=== PATIENT | male | born 1970 | race Caucasian/White ===

== ENCOUNTER 2021-01-05 06:57 | Outpatient (CLI) | payer BC | END 2021-01-05 06:58 | disposition home or self-care (01) | LOC: BICULT 06:57 | PROVIDERS: ATTEND Nurse Practitioner Family | DX: M79.604 Pain in right leg (principal); I70.201 Unspecified atherosclerosis of native arteries of extremities, right leg | CPT/HCPCS: 93923 ==

== ENCOUNTER 2021-04-19 07:52 | Emergency (ER) | payer BC ==
[2021-04-19] MEDS ORDERED: Ketorolac Tromethamine 30 MG/ML VIAL ONE (08:10)
[2021-04-19] MEDS ORDERED: Acetaminophen 500 MG TAB ONE (08:10)
[2021-04-19] MEDS ORDERED: cefTRIAXone\\ROCEPHIN 1 GM VIAL ONE (08:10)
[2021-04-19 08:20] LABS: #Lymphocytes 1.4 thou/uL (1.20-3.40); #Monocytes 0.5 thou/uL (0.11-0.59); #Neutrophils 5.5 thou/uL (1.40-6.50); %Basophils 0.1 % (0.0-1.0); %Lymphocytes 18.3 % (21.0-51.0); %Monocytes 7.1 % (0.0-10.0); %Neutrophils 74.5 % (42.0-75.0); Hemoglobin 16.5 g/dL (14.0-18.0); Mean Corpuscular HGB CONC 33.2 g/dL (32.0-36.0); Mean Corpuscular Hemoglobin 30.3 pg (27.0-31.0); Mean Corpuscular Volume 91.5 fL (78.0-98.0); Mean Platelet Volume 9.1 fL (7.4-10.4); Platelet Count 171 thou/uL (130-400); RBC Distribution Width 12.5 % (11.5-14.5); Red Blood Cell (RBC) Count 5.43 mill/uL (4.70-6.10); White Blood Cell (WBC) Count 7.4 thou/uL (4.8-10.8)
[2021-04-19 08:42] LABS: ALT (SGPT) 54 U/L (8-55); AST (SGOT) 64 U/L (5-34); Albumin 3.8 g/dL (3.5-5.0); Alkaline Phosphatase 66 U/L (40-110); Anion Gap 15 mmol/L (10-20); BUN (Urea Nitrogen) 17 mg/dL (8.4-25.7); Bilirubin, Total 0.5 mg/dL (0.2-1.2); Calc. Creatinine Clearance 0 mL/min (70-130); Calcium 8.9 mg/dL (7.8-10.44); Carbon Dioxide 24 mmol/L (22-29); Chloride 98 mmol/L (98-107); Globulin 4.1 g/dL (2.4-3.5); Glucose 129 mg/dL (70-105); Potassium 4.5 mmol/L (3.5-5.1); Protein, Total 7.9 g/dL (6.0-8.3); Sodium 132 mmol/L (136-145)
[2021-04-19] MEDS ORDERED: Albuterol 200 PUFF (6.7GM INHALER) ONE (08:50)
[2021-04-19 14:32] LABS: SARS-CoV-2 PCR by NAA DETECTED (NotDetected)
== END 2021-04-19 09:55 | disposition home or self-care (01) ==
LOC: ERS 07:52
DX: U07.1 COVID-19 (principal); F17.220 Nicotine dependence, chewing tobacco, uncomplicated
CPT/HCPCS: 71045; 80053; 83605; 84443; 84484; 85025; 87040; 93005; 96374; 96375; J0696; J1885; U0003; U0005

== ENCOUNTER 2021-04-22 08:52 | Inpatient (IN) | payer BC ==
[~2021-04-22 08:52] MED LIST: Dexamethasone 10 MG/ML VIAL SLOW IVP SCH
[2021-04-22 09:20] LABS: Actual Bicarbonate (HCO3a) 20.1 mEq/L (22-28); Analyzer IN Cardio ER; Base Excess (BEa) -2.7 mEq/L (-2.0 to +3.0); CO2 Tension 30.1 mmHg (35.0-45.0); Calcium, Ionized (arterial) 1.02 mmol/L (1.12-1.30); Carboxyhemoglobin (COHb) 0.8 gm% (0.0-3.0); Hemoglobin (Hb) 15.4 g/dL (14.0-18.0); Potassium - ABG Lab 3.12 mmol/L (3.70-5.30); pH, Arterial 7.44 (7.35-7.45)
[2021-04-22 09:22] LABS: O2 Tension (PaO2), arterial 38.9 mmHg (80.0-100.0)
[2021-04-22 09:23] LABS: ALV-art Gradient 565.175 mmHg (0-20); Puncture Site RRA
[2021-04-22] MEDS ORDERED: Albuterol 200 PUFF (6.7GM INHALER) ONE (09:24)
[2021-04-22] MEDS ORDERED: Azithromycin 500 MG VIAL ONE (09:24)
[2021-04-22] MEDS ORDERED: Dexamethasone 10 MG/ML VIAL ONE (09:24)
[2021-04-22] MEDS ORDERED: cefTRIAXone\\ROCEPHIN 2 GM VIAL ONE (09:24)
[2021-04-22 09:30] LABS: Mean Corpuscular HGB CONC 34.5 g/dL (32.0-36.0); Mean Corpuscular Hemoglobin 31.4 pg (27.0-31.0); Mean Corpuscular Volume 90.9 fL (78.0-98.0); Mean Platelet Volume 9.3 fL (7.4-10.4); Platelet Count 268 thou/uL (130-400); RBC Distribution Width 12.7 % (11.5-14.5); Red Blood Cell (RBC) Count 4.78 mill/uL (4.70-6.10); White Blood Cell (WBC) Count 13.3 thou/uL (4.8-10.8)
[2021-04-22] MEDS ORDERED: Ketamine 50 MG/ML (10ML VIAL) ONE (09:35)
[2021-04-22] MEDS ORDERED: Rocuronium Bromide 10 MG/ML (10ML VIAL) ONE ×2 (09:35→11:08)
[2021-04-22] MEDS ORDERED: Norepinephrine 8 MG/0.9% NS 250 ML ONE ×2 (09:37→09:39)
[2021-04-22 09:41] LABS: Band 6 % (5-11); Lymphocytes 11 % (21-51); MDiff Complete? YES; Monocytes 4 % (0-10); Neutrophil 77 % (42-75); Platelet Morphology Comment Appears Adequate; RBC Morphology Normal; Reactive Lymphocytes 2 % (0-10)
[2021-04-22 09:52] LABS: ALT (SGPT) 41 U/L (8-55); AST (SGOT) 74 U/L (5-34); Albumin 3.3 g/dL (3.5-5.0); Alkaline Phosphatase 57 U/L (40-110); Anion Gap 20 mmol/L (10-20); BUN (Urea Nitrogen) 26 mg/dL (8.4-25.7); Bilirubin, Total 1.1 mg/dL (0.2-1.2); Calc. Creatinine Clearance 0 mL/min (70-130); Calcium 7.5 mg/dL (7.8-10.44); Carbon Dioxide 19 mmol/L (22-29); Chloride 103 mmol/L (98-107); Globulin 2.6 g/dL (2.4-3.5); Glucose 144 mg/dL (70-105); Potassium 3.8 mmol/L (3.5-5.1); Protein, Total 5.9 g/dL (6.0-8.3); Sodium 138 mmol/L (136-145)
[2021-04-22] MEDS ORDERED: Fentanyl CADD 100 ML IV SCH (10:00)
[2021-04-22 10:17] LABS: CKMB 1.9 ng/mL (0-6.6)
[2021-04-22] MEDS ORDERED: Heparin 10,000 UNITS/ 10 ML VIAL ONE (10:46)
[2021-04-22] MEDS ORDERED: Heparin 25,000 units/D5W 500 ML ONE (10:46)
[2021-04-22] MEDS ORDERED: Cholecalciferol 1,000 UNITS (25 MCG) TAB PO SCH (11:00)
[2021-04-22] MEDS ORDERED: Thiamine 100 MG TAB PO SCH (11:00)
[2021-04-22] MEDS ORDERED: Enoxaparin Sodium 40 MG/0.4 ML SYRINGE SC SCH (11:30)
[2021-04-22] MEDS ORDERED: Vecuronium 10 MG VIAL ONE (11:58)
[2021-04-22] MEDS ORDERED: Lorazepam 2 MG/ML VIAL ONE (11:58)
[2021-04-22] MEDS ORDERED: Propofol 1,000 MG/100 ML VIAL IV ONE (11:58)
[2021-04-22 12:22] LABS: INR-International Normal Ratio 1.2
[2021-04-22 12:23] LABS: PTT 33.6 sec (22.9-36.1)
[2021-04-22] MEDS ORDERED: Dexamethasone 10 MG/ML VIAL SLOW IVP SCH (12:30)
[2021-04-22] MEDS ORDERED: Ascorbic Acid 500 mg Chewable Tablet PO SCH (12:30)
[2021-04-22 12:57] LABS: Lactic Acid 1.9 mmol/L (0.5-2.2)
[2021-04-22] MEDS ORDERED: Zinc Sulfate 220 MG CAP PO SCH (13:00)
[2021-04-22 13:01] LABS: Actual Bicarbonate (HCO3a) 19.5 mEq/L (22-28); Base Excess (BEa) -8.3 mEq/L (-2.0 to +3.0); CO2 Tension 48.4 mmHg (35.0-45.0); Calcium, Ionized (arterial) 1.08 mmol/L (1.12-1.30); Carboxyhemoglobin (COHb) 0.5 gm% (0.0-3.0); Hemoglobin (Hb) 15.1 g/dL (14.0-18.0); O2 Tension (PaO2), arterial 172.4 mmHg (80.0-100.0); Potassium - ABG Lab 3.36 mmol/L (3.70-5.30)
[2021-04-22 13:03] LABS: Puncture Site LRA; pH, Arterial 7.22 (7.35-7.45)
[2021-04-22 13:13] LABS: Troponin I 0.351 ng/mL (< 0.028)
[2021-04-22] MEDS ORDERED: Morphine 2 MG/ML VIAL SLOW IVP PRN (13:30)
[2021-04-22] MEDS ORDERED: Propofol BOLUS 1,000 MG/100 ML VIAL IV PRN (13:30)
[2021-04-22] MEDS ORDERED: DISCONTINUE PREVIOUS NARCOTIC PAIN MEDICATIONS AND BENZODIAZEPINES FS SCH (13:30)
[2021-04-22] MEDS ORDERED: Fentanyl BOLUS 250 ML IVPB PRN (13:30)
[2021-04-22] MEDS ORDERED: Lorazepam 2 MG/ML VIAL SLOW IVP SCH (13:35)
[2021-04-22] MEDS ORDERED: Vecuronium 10 MG VIAL IVP SCH (13:35)
[2021-04-22] MEDS ORDERED: Lactated Ringer's 1,000 ML IV SCH (14:30)
[2021-04-22] MEDS: Lorazepam 2 MG/ML VIAL SLOW IVP PRN ×3 (14:46→22:51)
[2021-04-22] MEDS: Vecuronium 10 MG VIAL IVP PRN ×3 (14:47→22:51)
[2021-04-22] MEDS ORDERED: REMDESIVIR 200 MG in Sodium Chloride 0.9% 250 ML 210 ML IV SCH (15:00)
[2021-04-22] MEDS: Propofol 1,000 MG/100 ML VIAL IV PRN (18:44)
[2021-04-22 20:32] LABS: Troponin I 0.157 ng/mL (< 0.028)
[2021-04-22] MEDS: Enoxaparin Sodium 40 MG/0.4 ML SYRINGE SC SCH (20:41)
[2021-04-22] MEDS: Famotidine/PF 20 mg/2ml Vial SLOW IVP SCH (20:41)
[2021-04-22] MEDS: Dexamethasone 10 MG/ML VIAL SLOW IVP SCH (20:42)
[2021-04-22] MEDS ORDERED: Fentanyl CADD 100 ML ONE (22:10)
[2021-04-22] MEDS: Fentanyl CADD 100 ML IV SCH (22:13)
[2021-04-23] MEDS: Vecuronium 10 MG VIAL IVP PRN ×5 (02:45→22:56)
[2021-04-23] MEDS: Lorazepam 2 MG/ML VIAL SLOW IVP PRN ×5 (02:45→22:53)
[2021-04-23 04:19] LABS: #Lymphocytes 1.2 thou/uL (1.20-3.40); #Monocytes 0.7 thou/uL (0.11-0.59); #Neutrophils 11.5 thou/uL (1.40-6.50); %Basophils 0.2 % (0.0-1.0); %Eosinophils 0.1 % (0.0-10.0); %Lymphocytes 8.9 % (21.0-51.0); %Monocytes 5.3 % (0.0-10.0); %Neutrophils 85.5 % (42.0-75.0); Hemoglobin 13.9 g/dL (14.0-18.0); Mean Corpuscular HGB CONC 33.5 g/dL (32.0-36.0); Mean Corpuscular Hemoglobin 31.8 pg (27.0-31.0); Mean Corpuscular Volume 94.7 fL (78.0-98.0); Mean Platelet Volume 9.7 fL (7.4-10.4); Platelet Count 277 thou/uL (130-400); RBC Distribution Width 12.9 % (11.5-14.5); Red Blood Cell (RBC) Count 4.38 mill/uL (4.70-6.10); White Blood Cell (WBC) Count 13.4 thou/uL (4.8-10.8)
[2021-04-23 04:28] LABS: Anion Gap 9 mmol/L (10-20); BUN (Urea Nitrogen) 24 mg/dL (8.4-25.7); Calc. Creatinine Clearance 156 mL/min (70-130); Carbon Dioxide 29 mmol/L (22-29); Chloride 106 mmol/L (98-107); Glucose 214 mg/dL (70-105); Potassium 4.2 mmol/L (3.5-5.1); Sodium 140 mmol/L (136-145)
[2021-04-23 06:49] LABS: Actual Bicarbonate (HCO3a) 26.5 mEq/L (22-28); Base Excess (BEa) -1.7 mEq/L (-2.0 to +3.0); CO2 Tension 59.7 mmHg (35.0-45.0); Calcium, Ionized (arterial) 1.15 mmol/L (1.12-1.30); Hemoglobin (Hb) 14.5 g/dL (14.0-18.0); O2 Tension (PaO2), arterial 108.4 mmHg (80.0-100.0); Potassium - ABG Lab 4.36 mmol/L (3.70-5.30); pH, Arterial 7.27 (7.35-7.45)
[2021-04-23 07:16] LABS: Puncture Site RRA
[2021-04-23 07:17] LABS: ALV-art Gradient 244.775 mmHg (0-20)
[2021-04-23] MEDS ORDERED: Dexamethasone 10 MG in Sodium Chloride 0.9% 50 ML IVPB SCH (09:00)
[2021-04-23] MEDS: Enoxaparin Sodium 40 MG/0.4 ML SYRINGE SC SCH ×2 (10:00→20:32)
[2021-04-23] MEDS: Thiamine 100 MG TAB PO SCH (10:01)
[2021-04-23] MEDS: Cholecalciferol 1,000 UNITS (25 MCG) TAB PO SCH (10:01)
[2021-04-23] MEDS: Famotidine/PF 20 mg/2ml Vial SLOW IVP SCH ×2 (10:01→20:33)
[2021-04-23] MEDS: Ascorbic Acid 500 mg Chewable Tablet PO SCH (10:01)
[2021-04-23] MEDS: Zinc Sulfate 220 MG CAP PO SCH (10:02)
[2021-04-23] MEDS: cefTRIAXone\\ROCEPHIN 2 GM in Sodium Chloride 0.9% 100 ML IVPB SCH (10:03)
[2021-04-23] MEDS: Propofol 1,000 MG/100 ML VIAL IV PRN ×2 (10:04→18:14)
[2021-04-23] MEDS: Dexamethasone 10 MG/ML VIAL SLOW IVP SCH ×2 (10:29→20:34)
[2021-04-23] MEDS: Azithromycin 500 MG in Sodium Chloride 0.9% 250 ML 250 ML IVPB SCH (10:30)
[2021-04-23] MEDS ORDERED: Fentanyl CADD 100 ML ONE ×2 (10:58→18:44)
[2021-04-23] MEDS ORDERED: REMDESIVIR 100 MG in Sodium Chloride 0.9% 250 ML 230 ML IV SCH (15:00)
[2021-04-23] MEDS: Fentanyl CADD 100 ML IV SCH (18:47)
[2021-04-24 04:18] LABS: Hemoglobin 13.2 g/dL (14.0-18.0); Mean Corpuscular HGB CONC 32.3 g/dL (32.0-36.0); Mean Corpuscular Hemoglobin 30.7 pg (27.0-31.0); Mean Corpuscular Volume 95.3 fL (78.0-98.0); Mean Platelet Volume 9.6 fL (7.4-10.4); Platelet Count 295 thou/uL (130-400); RBC Distribution Width 13.2 % (11.5-14.5); Red Blood Cell (RBC) Count 4.29 mill/uL (4.70-6.10); White Blood Cell (WBC) Count 16.8 thou/uL (4.8-10.8)
[2021-04-24 05:11] LABS: Magnesium 3.5 mg/dL (1.6-2.6)
[2021-04-24 05:13] LABS: ALT (SGPT) 38 U/L (8-55); AST (SGOT) 40 U/L (5-34); Albumin 2.9 g/dL (3.5-5.0); Alkaline Phosphatase 46 U/L (40-110); Anion Gap 10 mmol/L (10-20); BUN (Urea Nitrogen) 32 mg/dL (8.4-25.7); Bilirubin, Total 0.3 mg/dL (0.2-1.2); Calc. Creatinine Clearance 141 mL/min (70-130); Calcium 8.1 mg/dL (7.8-10.44); Carbon Dioxide 31 mmol/L (22-29); Chloride 108 mmol/L (98-107); Globulin 3.3 g/dL (2.4-3.5); Glucose 207 mg/dL (70-105); Potassium 4.2 mmol/L (3.5-5.1); Protein, Total 6.2 g/dL (6.0-8.3); Sodium 145 mmol/L (136-145)
[2021-04-24 05:50] LABS: Band 13 % (5-11); Lymphocytes 3 % (21-51); MDiff Complete? YES; Monocytes 3 % (0-10); Neutrophil 81 % (42-75)
[2021-04-24] MEDS: Lorazepam 2 MG/ML VIAL SLOW IVP PRN ×2 (06:43→08:19)
[2021-04-24] MEDS: Vecuronium 10 MG VIAL IVP PRN ×2 (06:43→08:19)
[2021-04-24] MEDS ORDERED: Fentanyl CADD 100 ML ONE (08:17)
[2021-04-24] MEDS: Enoxaparin Sodium 40 MG/0.4 ML SYRINGE SC SCH ×2 (08:19→21:10)
[2021-04-24] MEDS: Famotidine/PF 20 mg/2ml Vial SLOW IVP SCH ×2 (08:19→21:11)
[2021-04-24] MEDS: Fentanyl CADD 100 ML IV SCH (08:19)
[2021-04-24] MEDS: cefTRIAXone\\ROCEPHIN 2 GM in Sodium Chloride 0.9% 100 ML IVPB SCH (08:19)
[2021-04-24] MEDS: Ascorbic Acid 500 mg Chewable Tablet PO SCH (08:20)
[2021-04-24] MEDS: Cholecalciferol 1,000 UNITS (25 MCG) TAB PO SCH (08:20)
[2021-04-24] MEDS: Thiamine 100 MG TAB PO SCH (08:20)
[2021-04-24] MEDS: Zinc Sulfate 220 MG CAP PO SCH (08:20)
[2021-04-24] MEDS: Dexamethasone 10 MG/ML VIAL SLOW IVP SCH ×2 (08:21→21:43)
[2021-04-24 08:35] LABS: ALV-art Gradient 148.425 mmHg (0-20); Actual Bicarbonate (HCO3a) 27.8 mEq/L (22-28); Base Excess (BEa) 2.6 mEq/L (-2.0 to +3.0); CO2 Tension 45.1 mmHg (35.0-45.0); Calcium, Ionized (arterial) 1.11 mmol/L (1.12-1.30); Carboxyhemoglobin (COHb) 0.3 gm% (0.0-3.0); Hemoglobin (Hb) 13.9 g/dL (14.0-18.0); O2 Tension (PaO2), arterial 80.4 mmHg (80.0-100.0); Potassium - ABG Lab 4.16 mmol/L (3.70-5.30); Puncture Site LRA; pH, Arterial 7.41 (7.35-7.45)
[2021-04-24] MEDS ORDERED: fentaNYL Citrate/PF 2,000 MCG in Sodium Chloride 0.9% 60 ML IV PRN (09:14)
[2021-04-24] MEDS: Propofol 1,000 MG/100 ML VIAL IV PRN (09:18)
[2021-04-24 10:39] LABS: Phosphorus 2.6 mg/dL (2.3-4.7)
[2021-04-24] MEDS: Azithromycin 500 MG in Sodium Chloride 0.9% 250 ML 250 ML IVPB SCH (17:22)
[2021-04-24] MEDS ORDERED: BARICITINIB 1 MG TAB PO SCH (22:00)
[2021-04-25] MEDS: Propofol 1,000 MG/100 ML VIAL IV PRN ×3 (03:19→17:55)
[2021-04-25 04:45] LABS: Hemoglobin 12.7 g/dL (14.0-18.0); Mean Corpuscular Volume 94.1 fL (78.0-98.0); Mean Platelet Volume 9.6 fL (7.4-10.4); Platelet Count 368 thou/uL (130-400); Red Blood Cell (RBC) Count 3.97 mill/uL (4.70-6.10); White Blood Cell (WBC) Count 13.4 thou/uL (4.8-10.8)
[2021-04-25 04:54] LABS: CRP (Inflammatory) 4.85 mg/dL (= or < 0.5); Magnesium 3.5 mg/dL (1.6-2.6)
[2021-04-25 04:55] LABS: Phosphorus 2.5 mg/dL (2.3-4.7)
[2021-04-25] MEDS ORDERED: Fentanyl CADD 100 ML ONE ×2 (04:57→18:24)
[2021-04-25] MEDS: Fentanyl CADD 100 ML IV PRN ×2 (05:02→18:30)
[2021-04-25 05:22] LABS: Band 15 % (5-11); Lymphocytes 5 % (21-51); MDiff Complete? YES; Metamyelocyte 1 % (0-0); Monocytes 1 % (0-10); Neutrophil 74 % (42-75); Platelet Morphology Comment Appears Adequate; Polychromasia SLIGHT = 2-3 cells (100X) (0-2/hpf); Reactive Lymphocytes 4 % (0-10)
[2021-04-25 05:36] LABS: ALT (SGPT) 46 U/L (8-55); AST (SGOT) 56 U/L (5-34); Albumin 2.9 g/dL (3.5-5.0); Alkaline Phosphatase 51 U/L (40-110); Anion Gap 11 mmol/L (10-20); BUN (Urea Nitrogen) 40 mg/dL (8.4-25.7); Bilirubin, Total 0.6 mg/dL (0.2-1.2); Calc. Creatinine Clearance 135 mL/min (70-130); Calcium 8.1 mg/dL (7.8-10.44); Carbon Dioxide 29 mmol/L (22-29); Chloride 111 mmol/L (98-107); Globulin 3.1 g/dL (2.4-3.5); Glucose 174 mg/dL (70-105); Sodium 147 mmol/L (136-145)
[2021-04-25 08:07] LABS: Actual Bicarbonate (HCO3a) 28.5 mEq/L (22-28); CO2 Tension 42.8 mmHg (35.0-45.0); Calcium, Ionized (arterial) 1.09 mmol/L (1.12-1.30); Potassium - ABG Lab 3.99 mmol/L (3.70-5.30); pH, Arterial 7.44 (7.35-7.45)
[2021-04-25] MEDS: cefTRIAXone\\ROCEPHIN 2 GM in Sodium Chloride 0.9% 100 ML IVPB SCH (09:24)
[2021-04-25] MEDS: Famotidine/PF 20 mg/2ml Vial SLOW IVP SCH ×2 (09:26→20:26)
[2021-04-25] MEDS: Thiamine 100 MG TAB PO SCH (09:26)
[2021-04-25] MEDS: Zinc Sulfate 220 MG CAP PO SCH (09:26)
[2021-04-25] MEDS: Enoxaparin Sodium 40 MG/0.4 ML SYRINGE SC SCH ×2 (09:26→20:26)
[2021-04-25] MEDS: Cholecalciferol 1,000 UNITS (25 MCG) TAB PO SCH (09:26)
[2021-04-25] MEDS: Ascorbic Acid 500 mg Chewable Tablet PO SCH (09:26)
[2021-04-25] MEDS ORDERED: Piperacillin/Tazobactam 3.375 GM in Sodium Chloride 0.9% 100 ML IVPB SCH (10:17)
[2021-04-25] MEDS: Dexamethasone 10 MG/ML VIAL SLOW IVP SCH ×3 (10:18→20:54)
[2021-04-25 10:51] LABS: O2 Tension (PaO2), arterial 58.7 mmHg (80.0-100.0); Puncture Site LRA
[2021-04-25] MEDS: Vancomycin 1 GM in Premix Bag 1 BAG IVPB SCH (13:11)
[2021-04-25] MEDS: Cefepime 1 GM in Sodium Chloride 0.9% 100 ML IVPB SCH ×2 (13:12→21:01)
[2021-04-25] MEDS ORDERED: Dextrose 5% in Water 1,000 ML IV SCH (16:00)
[2021-04-25] MEDS ORDERED: Insulin Regular 300 UNITS/3 ML VIAL SC SCH (18:00)
[2021-04-25] MEDS ORDERED: Insulin Regular 300 UNITS/3 ML VIAL SC PRN (18:15)
[2021-04-25] MEDS ORDERED: Lactated Ringer's 1,000 ML IV SCH (18:15)
[2021-04-25] MEDS ORDERED: Dextrose 5% in Water 1,000 ML IV PRN (18:30)
[2021-04-25] MEDS ORDERED: Dextrose 50% Abboject 50 ML SYRINGE IVP PRN (18:30)
[2021-04-25] MEDS: Insulin Regular 300 UNITS/3 ML VIAL SC SCH (20:04)
[2021-04-25] MEDS: BARICITINIB 1 MG TAB PO SCH (20:55)
[2021-04-26] MEDS: Vancomycin 1 GM in Premix Bag 1 BAG IVPB SCH ×2 (00:17→12:31)
[2021-04-26] MEDS: Insulin Regular 300 UNITS/3 ML VIAL SC SCH ×3 (00:28→12:15)
[2021-04-26] MEDS: Propofol 1,000 MG/100 ML VIAL IV PRN ×5 (02:10→19:54)
[2021-04-26 04:51] LABS: CRP (Inflammatory) 2.61 mg/dL (= or < 0.5); Magnesium 3.4 mg/dL (1.6-2.6); Phosphorus 3.5 mg/dL (2.3-4.7)
[2021-04-26] MEDS: Cefepime 1 GM in Sodium Chloride 0.9% 100 ML IVPB SCH ×3 (05:14→21:33)
[2021-04-26 06:31] LABS: Band 20 % (5-11); Hemoglobin 12.4 g/dL (14.0-18.0); Large Platelets SLIGHT; Lymphocytes 3 % (21-51); MDiff Complete? YES; Mean Corpuscular HGB CONC 32.1 g/dL (32.0-36.0); Mean Corpuscular Hemoglobin 30.7 pg (27.0-31.0); Mean Corpuscular Volume 95.6 fL (78.0-98.0); Mean Platelet Volume 9.6 fL (7.4-10.4); Monocytes 4 % (0-10); Myelocyte 2 % (0-0); Neutrophil 66 % (42-75); Platelet Count 417 thou/uL (130-400); RBC Distribution Width 13.1 % (11.5-14.5); Reactive Lymphocytes 5 % (0-10); Red Blood Cell (RBC) Count 4.05 mill/uL (4.70-6.10); White Blood Cell (WBC) Count 16.1 thou/uL (4.8-10.8)
[2021-04-26] MEDS: Lorazepam 2 MG/ML VIAL SLOW IVP PRN (07:23)
[2021-04-26] MEDS ORDERED: Fentanyl CADD 100 ML ONE ×2 (07:51→19:31)
[2021-04-26] MEDS: Zinc Sulfate 220 MG CAP PO SCH (07:59)
[2021-04-26] MEDS: Enoxaparin Sodium 40 MG/0.4 ML SYRINGE SC SCH ×2 (07:59→19:53)
[2021-04-26] MEDS: Ascorbic Acid 500 mg Chewable Tablet PO SCH (07:59)
[2021-04-26] MEDS: Thiamine 100 MG TAB PO SCH (07:59)
[2021-04-26] MEDS: Famotidine/PF 20 mg/2ml Vial SLOW IVP SCH ×2 (08:00→19:53)
[2021-04-26 08:48] LABS: Base Excess (BEa) 5.7 mEq/L (-2.0 to +3.0); CO2 Tension 42.2 mmHg (35.0-45.0); Calcium, Ionized (arterial) 1.04 mmol/L (1.12-1.30); Carboxyhemoglobin (COHb) 0.4 gm% (0.0-3.0); Hemoglobin (Hb) 12.8 g/dL (14.0-18.0); O2 Tension (PaO2), arterial 82.9 mmHg (80.0-100.0); Potassium - ABG Lab 3.76 mmol/L (3.70-5.30); pH, Arterial 7.47 (7.35-7.45)
[2021-04-26 09:02] LABS: Puncture Site LRA
[2021-04-26] MEDS: Cholecalciferol 1,000 UNITS (25 MCG) TAB PO SCH (09:12)
[2021-04-26] MEDS: Dexamethasone 10 MG/ML VIAL SLOW IVP SCH ×2 (09:32→21:27)
[2021-04-26 10:11] LABS: Actual Bicarbonate (HCO3a) 28.8 mEq/L (22-28); Base Excess (BEa) 3.7 mEq/L (-2.0 to +3.0); CO2 Tension 45.8 mmHg (35.0-45.0); Calcium, Ionized (arterial) 1.09 mmol/L (1.12-1.30); Carboxyhemoglobin (COHb) 0.2 gm% (0.0-3.0); Hemoglobin (Hb) 12.8 g/dL (14.0-18.0); Potassium - ABG Lab 3.84 mmol/L (3.70-5.30); pH, Arterial 7.42 (7.35-7.45)
[2021-04-26 10:23] LABS: Anion Gap 12 mmol/L (10-20); BUN (Urea Nitrogen) 39 mg/dL (8.4-25.7); Calc. Creatinine Clearance 168 mL/min (70-130); Calcium 7.8 mg/dL (7.8-10.44); Carbon Dioxide 26 mmol/L (22-29); Chloride 114 mmol/L (98-107); Glucose 164 mg/dL (70-105); Sodium 148 mmol/L (136-145)
[2021-04-26 10:33] LABS: O2 Tension (PaO2), arterial 56.4 mmHg (80.0-100.0); Puncture Site LRA
[2021-04-26] MEDS: BARICITINIB 1 MG TAB PO SCH (19:53)
[2021-04-26] MEDS: Fentanyl CADD 100 ML IV PRN (19:54)
[2021-04-26] MEDS: Dextrose 5% in Water 1,000 ML IV SCH (21:27)
[2021-04-27] MEDS: Insulin Regular 300 UNITS/3 ML VIAL SC SCH ×5 (00:30→19:28)
[2021-04-27] MEDS: Vancomycin 1 GM in Premix Bag 1 BAG IVPB SCH (00:40)
[2021-04-27 01:06] LABS: Vancomycin, Trough 6.3 ug/mL
[2021-04-27] MEDS ORDERED: Lorazepam 2 MG/ML VIAL ONE (01:10)
[2021-04-27] MEDS: Propofol 1,000 MG/100 ML VIAL IV PRN ×4 (01:11→23:17)
[2021-04-27] MEDS ORDERED: Vancomycin 1 GM in Premix Bag 1 BAG IVPB SCH (02:30)
[2021-04-27] MEDS ORDERED: Fentanyl CADD 100 ML ONE ×2 (05:09→15:02)
[2021-04-27 05:44] LABS: ALT (SGPT) 248 U/L (8-55); AST (SGOT) 128 U/L (5-34); Albumin 2.7 g/dL (3.5-5.0); Alkaline Phosphatase 70 U/L (40-110); Anion Gap 11 mmol/L (10-20); BUN (Urea Nitrogen) 33 mg/dL (8.4-25.7); Bilirubin, Total 1.1 mg/dL (0.2-1.2); Calc. Creatinine Clearance 172 mL/min (70-130); Calcium 7.7 mg/dL (7.8-10.44); Carbon Dioxide 31 mmol/L (22-29); Chloride 110 mmol/L (98-107); Globulin 2.9 g/dL (2.4-3.5); Glucose 234 mg/dL (70-105); Magnesium 2.8 mg/dL (1.6-2.6); Phosphorus 3.9 mg/dL (2.3-4.7); Potassium 4.6 mmol/L (3.5-5.1); Protein, Total 5.6 g/dL (6.0-8.3); Sodium 147 mmol/L (136-145)
[2021-04-27] MEDS: Fentanyl CADD 100 ML IV PRN (05:45)
[2021-04-27] MEDS: Cefepime 1 GM in Sodium Chloride 0.9% 100 ML IVPB SCH ×3 (05:45→22:24)
[2021-04-27 06:00] LABS: Hemoglobin 12.2 g/dL (14.0-18.0); Mean Corpuscular HGB CONC 34.1 g/dL (32.0-36.0); Mean Corpuscular Hemoglobin 32.3 pg (27.0-31.0); Mean Corpuscular Volume 94.7 fL (78.0-98.0); Mean Platelet Volume 9.2 fL (7.4-10.4); Platelet Count 414 thou/uL (130-400); RBC Distribution Width 12.8 % (11.5-14.5); Red Blood Cell (RBC) Count 3.79 mill/uL (4.70-6.10); White Blood Cell (WBC) Count 17.6 thou/uL (4.8-10.8)
[2021-04-27 06:02] LABS: Band 14 % (5-11); Lymphocytes 4 % (21-51); MDiff Complete? YES; Metamyelocyte 3 % (0-0); Monocytes 5 % (0-10); Myelocyte 4 % (0-0); Neutrophil 70 % (42-75)
[2021-04-27] MEDS: Dexamethasone 4 mg/ml Vial SLOW IVP SCH (08:42)
[2021-04-27] MEDS: Famotidine/PF 20 mg/2ml Vial SLOW IVP SCH (08:43)
[2021-04-27] MEDS: Ascorbic Acid 500 mg Chewable Tablet PO SCH (08:43)
[2021-04-27] MEDS: Zinc Sulfate 220 MG CAP PO SCH (08:43)
[2021-04-27] MEDS: Cholecalciferol 1,000 UNITS (25 MCG) TAB PO SCH (08:43)
[2021-04-27] MEDS: Enoxaparin Sodium 40 MG/0.4 ML SYRINGE SC SCH ×2 (08:43→20:18)
[2021-04-27] MEDS: Thiamine 100 MG TAB PO SCH (08:43)
[2021-04-27] MEDS: Lorazepam 2 MG/ML VIAL SLOW IVP PRN ×5 (08:44→22:52)
[2021-04-27] MEDS ORDERED: Furosemide 40 MG/4 ML VIAL SLOW IVP SCH (09:45)
[2021-04-27] MEDS ORDERED: Vecuronium 10 MG VIAL ONE ×2 (10:21→13:09)
[2021-04-27] MEDS ORDERED: Vecuronium Bromide 50 MG in Sodium Chloride 0.9% 250 ML 250 ML IV SCH (10:30)
[2021-04-27 13:05] LABS: Actual Bicarbonate (HCO3a) 31.1 mEq/L (22-28); Base Excess (BEa) 6.2 mEq/L (-2.0 to +3.0); CO2 Tension 45.4 mmHg (35.0-45.0); Calcium, Ionized (arterial) 1.08 mmol/L (1.12-1.30); Carboxyhemoglobin (COHb) 0.5 gm% (0.0-3.0); Hemoglobin (Hb) 13.7 g/dL (14.0-18.0); pH, Arterial 7.45 (7.35-7.45)
[2021-04-27 14:14] LABS: O2 Tension (PaO2), arterial 59.4 mmHg (80.0-100.0)
[2021-04-27 14:15] LABS: Puncture Site LRA
[2021-04-27] MEDS: VANCOMYCIN 1.75 GM/350 ML BAG 1.75 GM in Premix Bag 1 BAG IVPB SCH (17:04)
[2021-04-27] MEDS: Dextrose 5% in Water 1,000 ML IV SCH (19:27)
[2021-04-27] MEDS ORDERED: Sterile Water 10 ML ONE ×2 (20:14→22:49)
[2021-04-27] MEDS: Vecuronium 10 MG VIAL IV PRN ×2 (20:17→22:51)
[2021-04-27] MEDS: BARICITINIB 1 MG TAB PO SCH (20:17)
[2021-04-27] MEDS: Famotidine 20 MG TAB PO SCH (20:18)
[2021-04-28] MEDS: Insulin Regular 300 UNITS/3 ML VIAL SC SCH ×4 (00:29→18:26)
[2021-04-28] MEDS ORDERED: Fentanyl CADD 100 ML ONE ×3 (01:01→19:31)
[2021-04-28] MEDS ORDERED: Sterile Water 10 ML ONE ×2 (01:05→03:47)
[2021-04-28] MEDS: Lorazepam 2 MG/ML VIAL SLOW IVP PRN ×3 (01:06→09:18)
[2021-04-28] MEDS: Vecuronium 10 MG VIAL IV PRN ×2 (01:06→03:48)
[2021-04-28] MEDS: Fentanyl CADD 100 ML IV PRN ×3 (01:06→21:07)
[2021-04-28] MEDS: VANCOMYCIN 1.75 GM/350 ML BAG 1.75 GM in Premix Bag 1 BAG IVPB SCH ×2 (02:41→14:28)
[2021-04-28] MEDS: Propofol 1,000 MG/100 ML VIAL IV PRN ×5 (03:48→21:03)
[2021-04-28 04:25] LABS: Hemoglobin 12.3 g/dL (14.0-18.0); Mean Corpuscular HGB CONC 32.9 g/dL (32.0-36.0); Mean Corpuscular Hemoglobin 31.3 pg (27.0-31.0); Mean Corpuscular Volume 94.9 fL (78.0-98.0); Mean Platelet Volume 9.3 fL (7.4-10.4); Platelet Count 400 thou/uL (130-400); RBC Distribution Width 12.6 % (11.5-14.5); Red Blood Cell (RBC) Count 3.94 mill/uL (4.70-6.10); White Blood Cell (WBC) Count 16.6 thou/uL (4.8-10.8)
[2021-04-28 04:41] LABS: ALT (SGPT) 272 U/L (8-55); AST (SGOT) 105 U/L (5-34); Albumin 2.7 g/dL (3.5-5.0); Alkaline Phosphatase 72 U/L (40-110); Anion Gap 10 mmol/L (10-20); BUN (Urea Nitrogen) 30 mg/dL (8.4-25.7); Bilirubin, Total 0.9 mg/dL (0.2-1.2); Calc. Creatinine Clearance 186 mL/min (70-130); Calcium 7.4 mg/dL (7.8-10.44); Carbon Dioxide 34 mmol/L (22-29); Chloride 107 mmol/L (98-107); Globulin 2.8 g/dL (2.4-3.5); Glucose 138 mg/dL (70-105); Magnesium 2.5 mg/dL (1.6-2.6); Phosphorus 4.2 mg/dL (2.3-4.7); Potassium 4.6 mmol/L (3.5-5.1); Protein, Total 5.5 g/dL (6.0-8.3); Sodium 146 mmol/L (136-145)
[2021-04-28 05:10] LABS: Band 14 % (5-11); Lymphocytes 14 % (21-51); MDiff Complete? YES; Monocytes 5 % (0-10); Myelocyte 5 % (0-0); Neutrophil 62 % (42-75)
[2021-04-28] MEDS: Cefepime 1 GM in Sodium Chloride 0.9% 100 ML IVPB SCH ×3 (05:29→21:03)
[2021-04-28 06:49] LABS: Actual Bicarbonate (HCO3a) 29.3 mEq/L (22-28); Base Excess (BEa) 4.7 mEq/L (-2.0 to +3.0); CO2 Tension 43.3 mmHg (35.0-45.0); Calcium, Ionized (arterial) 1.07 mmol/L (1.12-1.30); Carboxyhemoglobin (COHb) 0.5 gm% (0.0-3.0); Potassium - ABG Lab 4.06 mmol/L (3.70-5.30); pH, Arterial 7.45 (7.35-7.45)
[2021-04-28 06:52] LABS: O2 Tension (PaO2), arterial 49.4 mmHg (80.0-100.0); Puncture Site LRA
[2021-04-28 06:53] LABS: ALV-art Gradient 181.675 mmHg (0-20)
[2021-04-28] MEDS ORDERED: Norepinephrine 8 MG/0.9% NS 250 ML ONE (08:26)
[2021-04-28] MEDS ORDERED: Norepinephrine 8 MG/0.9% NS 250 ML IVPB SCH (08:30)
[2021-04-28] MEDS: Ascorbic Acid 500 mg Chewable Tablet PO SCH (09:09)
[2021-04-28] MEDS: Thiamine 100 MG TAB PO SCH (09:09)
[2021-04-28] MEDS: Cholecalciferol 1,000 UNITS (25 MCG) TAB PO SCH (09:09)
[2021-04-28] MEDS: Famotidine 20 MG TAB PO SCH ×2 (09:09→21:07)
[2021-04-28] MEDS: Zinc Sulfate 220 MG CAP PO SCH (09:09)
[2021-04-28] MEDS: Dexamethasone 4 mg/ml Vial SLOW IVP SCH (09:10)
[2021-04-28] MEDS: Enoxaparin Sodium 40 MG/0.4 ML SYRINGE SC SCH ×2 (09:10→21:06)
[2021-04-28 11:44] LABS: Actual Bicarbonate (HCO3a) 30.7 mEq/L (22-28); Base Excess (BEa) 5.2 mEq/L (-2.0 to +3.0); CO2 Tension 48.2 mmHg (35.0-45.0); Calcium, Ionized (arterial) 1.07 mmol/L (1.12-1.30); Carboxyhemoglobin (COHb) 0.7 gm% (0.0-3.0); Hemoglobin (Hb) 13.8 g/dL (14.0-18.0); O2 Tension (PaO2), arterial 62.4 mmHg (80.0-100.0); pH, Arterial 7.42 (7.35-7.45)
[2021-04-28 12:41] LABS: Puncture Site LRA
[2021-04-28 14:13] LABS: Vancomycin, Trough 15.2 ug/mL
[2021-04-28] MEDS: BARICITINIB 2 MG TAB PO SCH (21:06)
[2021-04-29] MEDS: Propofol 1,000 MG/100 ML VIAL IV PRN ×8 (00:34→21:52)
[2021-04-29] MEDS: Insulin Regular 300 UNITS/3 ML VIAL SC SCH ×3 (00:42→18:39)
[2021-04-29] MEDS: VANCOMYCIN 1.75 GM/350 ML BAG 1.75 GM in Premix Bag 1 BAG IVPB SCH ×2 (02:02→15:54)
[2021-04-29 04:30] LABS: ALT (SGPT) 233 U/L (8-55); AST (SGOT) 51 U/L (5-34); Albumin 2.7 g/dL (3.5-5.0); Alkaline Phosphatase 71 U/L (40-110); Anion Gap 11 mmol/L (10-20); BUN (Urea Nitrogen) 25 mg/dL (8.4-25.7); Bilirubin, Total 0.9 mg/dL (0.2-1.2); Calc. Creatinine Clearance 198 mL/min (70-130); Calcium 7.8 mg/dL (7.8-10.44); Carbon Dioxide 32 mmol/L (22-29); Chloride 104 mmol/L (98-107); Globulin 2.9 g/dL (2.4-3.5); Glucose 141 mg/dL (70-105); Hemoglobin 12.6 g/dL (14.0-18.0); Magnesium 2.2 mg/dL (1.6-2.6); Mean Corpuscular HGB CONC 33.5 g/dL (32.0-36.0); Mean Corpuscular Hemoglobin 31.7 pg (27.0-31.0); Mean Corpuscular Volume 94.7 fL (78.0-98.0); Phosphorus 3.4 mg/dL (2.3-4.7); Platelet Count 347 thou/uL (130-400); Potassium 4.3 mmol/L (3.5-5.1); Protein, Total 5.6 g/dL (6.0-8.3); RBC Distribution Width 12.8 % (11.5-14.5); Red Blood Cell (RBC) Count 3.98 mill/uL (4.70-6.10); Sodium 143 mmol/L (136-145); White Blood Cell (WBC) Count 17.7 thou/uL (4.8-10.8)
[2021-04-29 05:12] LABS: Band 20 % (5-11); Lymphocytes 5 % (21-51); MDiff Complete? YES; Metamyelocyte 4 % (0-0); Monocytes 5 % (0-10); Myelocyte 4 % (0-0); Neutrophil 62 % (42-75); Nucleated RBC 1 % (0)
[2021-04-29] MEDS: Cefepime 1 GM in Sodium Chloride 0.9% 100 ML IVPB SCH ×3 (06:36→21:19)
[2021-04-29] MEDS ORDERED: Fentanyl CADD 100 ML ONE ×2 (08:09→17:13)
[2021-04-29] MEDS: Vecuronium 10 MG VIAL IV PRN ×4 (08:44→21:20)
[2021-04-29] MEDS: Cholecalciferol 1,000 UNITS (25 MCG) TAB PO SCH (09:48)
[2021-04-29] MEDS: Zinc Sulfate 220 MG CAP PO SCH (09:48)
[2021-04-29] MEDS: Enoxaparin Sodium 40 MG/0.4 ML SYRINGE SC SCH ×2 (09:48→21:30)
[2021-04-29] MEDS: Ascorbic Acid 500 mg Chewable Tablet PO SCH (09:49)
[2021-04-29] MEDS: Dexamethasone 4 mg/ml Vial SLOW IVP SCH (09:49)
[2021-04-29] MEDS: Famotidine 20 MG TAB PO SCH ×2 (09:49→21:19)
[2021-04-29] MEDS: Thiamine 100 MG TAB PO SCH (09:49)
[2021-04-29] MEDS ORDERED: Furosemide 40 MG/4 ML VIAL SLOW IVP SCH (13:00)
[2021-04-29 15:46] LABS: Actual Bicarbonate (HCO3a) 28.3 mEq/L (22-28); Base Excess (BEa) 2.3 mEq/L (-2.0 to +3.0); CO2 Tension 49.1 mmHg (35.0-45.0); Carboxyhemoglobin (COHb) 0.5 gm% (0.0-3.0); Hemoglobin (Hb) 13.6 g/dL (14.0-18.0); O2 Tension (PaO2), arterial 75.3 mmHg (80.0-100.0); Potassium - ABG Lab 5.18 mmol/L (3.70-5.30); pH, Arterial 7.38 (7.35-7.45)
[2021-04-29 15:47] LABS: ALV-art Gradient 291.125 mmHg (0-20); Puncture Site LRA
[2021-04-29] MEDS: Fentanyl CADD 100 ML IV PRN (17:18)
[2021-04-29] MEDS: BARICITINIB 2 MG TAB PO SCH (21:19)
[2021-04-30] MEDS: Insulin Regular 300 UNITS/3 ML VIAL SC SCH ×5 (00:21→12:20)
[2021-04-30] MEDS: Propofol 1,000 MG/100 ML VIAL IV PRN ×6 (01:07→23:32)
[2021-04-30 02:38] LABS: Hemoglobin 12.5 g/dL (14.0-18.0); Mean Corpuscular HGB CONC 34.1 g/dL (32.0-36.0); Mean Corpuscular Hemoglobin 32.3 pg (27.0-31.0); Mean Corpuscular Volume 94.6 fL (78.0-98.0); Mean Platelet Volume 9.1 fL (7.4-10.4); Platelet Count 293 thou/uL (130-400); RBC Distribution Width 12.5 % (11.5-14.5); Red Blood Cell (RBC) Count 3.86 mill/uL (4.70-6.10); White Blood Cell (WBC) Count 18.5 thou/uL (4.8-10.8)
[2021-04-30 02:54] LABS: Band 18 % (5-11); Lymphocytes 2 % (21-51); MDiff Complete? YES; Metamyelocyte 5 % (0-0); Monocytes 4 % (0-10); Myelocyte 4 % (0-0); Neutrophil 66 % (42-75); Platelet Morphology Comment Appears Adequate; RBC Morphology Normal; Reactive Lymphocytes 1 % (0-10)
[2021-04-30 02:57] LABS: Vancomycin, Trough 32.4 ug/mL
[2021-04-30] MEDS: Vecuronium 10 MG VIAL IV PRN (03:04)
[2021-04-30 03:09] LABS: ALT (SGPT) 173 U/L (8-55); AST (SGOT) 40 U/L (5-34); Albumin 2.5 g/dL (3.5-5.0); Alkaline Phosphatase 67 U/L (40-110); Anion Gap 14 mmol/L (10-20); BUN (Urea Nitrogen) 51 mg/dL (8.4-25.7); Bilirubin, Total 0.8 mg/dL (0.2-1.2); Calc. Creatinine Clearance 104 mL/min (70-130); Carbon Dioxide 27 mmol/L (22-29); Chloride 104 mmol/L (98-107); Globulin 3.1 g/dL (2.4-3.5); Glucose 160 mg/dL (70-105); Potassium 4.9 mmol/L (3.5-5.1); Protein, Total 5.6 g/dL (6.0-8.3); Sodium 140 mmol/L (136-145)
[2021-04-30] MEDS ORDERED: Fentanyl CADD 100 ML ONE (03:18)
[2021-04-30] MEDS: Fentanyl CADD 100 ML IV PRN ×2 (03:20→15:07)
[2021-04-30] MEDS: VANCOMYCIN 1.75 GM/350 ML BAG 1.75 GM in Premix Bag 1 BAG IVPB SCH ×2 (04:32→19:10)
[2021-04-30] MEDS: Cefepime 1 GM in Sodium Chloride 0.9% 100 ML IVPB SCH (05:31)
[2021-04-30] MEDS ORDERED: MEROPENEM 1 GM/50 ML 1 GM in Premix Bag 1 BAG IVPB SCH (08:45)
[2021-04-30] MEDS: Micafungin 100 MG in Sodium Chloride 0.9% 100 ML IVPB SCH (09:42)
[2021-04-30] MEDS: Enoxaparin Sodium 40 MG/0.4 ML SYRINGE SC SCH ×2 (09:42→20:15)
[2021-04-30] MEDS: Famotidine 20 MG TAB PO SCH ×2 (09:42→20:15)
[2021-04-30] MEDS: Thiamine 100 MG TAB PO SCH (09:43)
[2021-04-30] MEDS: Ascorbic Acid 500 mg Chewable Tablet PO SCH (09:43)
[2021-04-30] MEDS: Dexamethasone 4 mg/ml Vial SLOW IVP SCH (09:44)
[2021-04-30] MEDS: Zinc Sulfate 220 MG CAP PO SCH (09:44)
[2021-04-30] MEDS: Cholecalciferol 1,000 UNITS (25 MCG) TAB PO SCH (09:47)
[2021-04-30] MEDS ORDERED: Meropenem 1 GM in Sodium Chloride 0.9% 100 ML IVPB SCH (14:00)
[2021-04-30 14:48] LABS: Actual Bicarbonate (HCO3a) 30.3 mEq/L (22-28); Base Excess (BEa) 3.8 mEq/L (-2.0 to +3.0); CO2 Tension 53.9 mmHg (35.0-45.0); Carboxyhemoglobin (COHb) 0.3 gm% (0.0-3.0); Hemoglobin (Hb) 12.8 g/dL (14.0-18.0); O2 Tension (PaO2), arterial 104.6 mmHg (80.0-100.0); Potassium - ABG Lab 5.16 mmol/L (3.70-5.30); pH, Arterial 7.37 (7.35-7.45)
[2021-04-30 14:51] LABS: ALV-art Gradient 255.825 mmHg (0-20); Puncture Site Arterial Line
[2021-04-30] MEDS ORDERED: VANCOMYCIN 1.75 GM/350 ML BAG 1.75 GM in Premix Bag 1 BAG IVPB SCH (15:00)
[2021-04-30 15:12] LABS: Vancomycin, Random 15.7 ug/mL (See Comment)
[2021-04-30] MEDS: MEROPENEM 1 GM/50 ML 1 GM in Premix Bag 1 BAG IVPB SCH ×2 (15:57→23:32)
[2021-04-30] MEDS: BARICITINIB 2 MG TAB PO SCH (20:15)
[2021-05-01] MEDS: Insulin Regular 300 UNITS/3 ML VIAL SC SCH ×6 (00:22→23:34)
[2021-05-01] MEDS: Propofol 1,000 MG/100 ML VIAL IV PRN ×5 (03:40→22:28)
[2021-05-01] MEDS ORDERED: Fentanyl CADD 100 ML ONE ×2 (07:00→23:09)
[2021-05-01] MEDS: Fentanyl CADD 100 ML IV PRN ×2 (07:20→23:21)
[2021-05-01] MEDS: MEROPENEM 1 GM/50 ML 1 GM in Premix Bag 1 BAG IVPB SCH ×3 (08:49→23:24)
[2021-05-01] MEDS: Micafungin 100 MG in Sodium Chloride 0.9% 100 ML IVPB SCH (08:50)
[2021-05-01] MEDS: Zinc Sulfate 220 MG CAP PO SCH (08:50)
[2021-05-01] MEDS: Thiamine 100 MG TAB PO SCH (08:50)
[2021-05-01] MEDS: Famotidine 20 MG TAB PO SCH ×2 (08:50→20:17)
[2021-05-01] MEDS: Ascorbic Acid 500 mg Chewable Tablet PO SCH (08:51)
[2021-05-01] MEDS: Dexamethasone 4 mg/ml Vial SLOW IVP SCH (08:51)
[2021-05-01] MEDS: Enoxaparin Sodium 40 MG/0.4 ML SYRINGE SC SCH ×2 (08:51→20:17)
[2021-05-01] MEDS: Cholecalciferol 1,000 UNITS (25 MCG) TAB PO SCH (08:55)
[2021-05-01] MEDS: VANCOMYCIN 1.75 GM/350 ML BAG 1.75 GM in Premix Bag 1 BAG IVPB SCH (18:20)
[2021-05-01] MEDS: BARICITINIB 2 MG TAB PO SCH (20:17)
[2021-05-02] MEDS: Propofol 1,000 MG/100 ML VIAL IV PRN ×4 (02:09→20:00)
[2021-05-02 05:08] LABS: Anion Gap 10 mmol/L (10-20); BUN (Urea Nitrogen) 41 mg/dL (8.4-25.7); Calc. Creatinine Clearance 197 mL/min (70-130); Calcium 8.2 mg/dL (7.8-10.44); Carbon Dioxide 31 mmol/L (22-29); Chloride 105 mmol/L (98-107); Glucose 147 mg/dL (70-105); Potassium 4.5 mmol/L (3.5-5.1); Sodium 141 mmol/L (136-145)
[2021-05-02] MEDS: Insulin Regular 300 UNITS/3 ML VIAL SC SCH ×4 (05:14→23:30)
[2021-05-02 05:25] LABS: Band 5 % (5-11); Hemoglobin 11.8 g/dL (14.0-18.0); Lymphocytes 5 % (21-51); MDiff Complete? YES; Mean Corpuscular HGB CONC 33.4 g/dL (32.0-36.0); Mean Corpuscular Hemoglobin 31.8 pg (27.0-31.0); Mean Corpuscular Volume 95.4 fL (78.0-98.0); Mean Platelet Volume 9.5 fL (7.4-10.4); Monocytes 7 % (0-10); Myelocyte 1 % (0-0); Neutrophil 79 % (42-75); Platelet Count 312 thou/uL (130-400); Platelet Morphology Comment Appears Adequate; RBC Distribution Width 12.8 % (11.5-14.5); RBC Morphology Normal; Reactive Lymphocytes 3 % (0-10); White Blood Cell (WBC) Count 16.5 thou/uL (4.8-10.8)
[2021-05-02] MEDS: Micafungin 100 MG in Sodium Chloride 0.9% 100 ML IVPB SCH (08:25)
[2021-05-02] MEDS: Dexamethasone 4 mg/ml Vial SLOW IVP SCH (08:30)
[2021-05-02] MEDS: MEROPENEM 1 GM/50 ML 1 GM in Premix Bag 1 BAG IVPB SCH ×3 (08:30→23:15)
[2021-05-02] MEDS: Ascorbic Acid 500 mg Chewable Tablet PO SCH (08:30)
[2021-05-02] MEDS: Thiamine 100 MG TAB PO SCH (08:31)
[2021-05-02] MEDS: Zinc Sulfate 220 MG CAP PO SCH (08:31)
[2021-05-02] MEDS: Enoxaparin Sodium 40 MG/0.4 ML SYRINGE SC SCH ×2 (08:31→20:01)
[2021-05-02] MEDS: Famotidine 20 MG TAB PO SCH ×2 (08:31→20:01)
[2021-05-02] MEDS: Cholecalciferol 1,000 UNITS (25 MCG) TAB PO SCH (08:33)
[2021-05-02] MEDS: Fentanyl CADD 100 ML IV PRN (14:43)
[2021-05-02] MEDS ORDERED: Vancomycin 1.5 GRAM/300 ML BAG 1.5 GM in Premix Bag 1 BAG IVPB SCH (16:30)
[2021-05-02 17:42] LABS: Vancomycin, Trough 6.5 ug/mL
[2021-05-02] MEDS: Vancomycin 1.5 GRAM/300 ML BAG 1.5 GM in Premix Bag 1 BAG IVPB SCH (18:32)
[2021-05-02] MEDS: BARICITINIB 2 MG TAB PO SCH (20:01)
[2021-05-03 04:34] LABS: Anion Gap 10 mmol/L (10-20); BUN (Urea Nitrogen) 37 mg/dL (8.4-25.7); Calc. Creatinine Clearance 201 mL/min (70-130); Calcium 8.3 mg/dL (7.8-10.44); Carbon Dioxide 31 mmol/L (22-29); Chloride 102 mmol/L (98-107); Glucose 146 mg/dL (70-105); Potassium 4.3 mmol/L (3.5-5.1); Sodium 139 mmol/L (136-145)
[2021-05-03 04:42] LABS: Band 9 % (5-11); Hemoglobin 11.6 g/dL (14.0-18.0); Hypochromia SLIGHT = 6-15 cells (100X) (0-5/hpf); Lymphocytes 6 % (21-51); MDiff Complete? YES; Mean Corpuscular HGB CONC 33.7 g/dL (32.0-36.0); Mean Corpuscular Volume 95.1 fL (78.0-98.0); Mean Platelet Volume 9.6 fL (7.4-10.4); Monocytes 7 % (0-10); Neutrophil 78 % (42-75); Platelet Count 302 thou/uL (130-400); Platelet Morphology Comment Appears Adequate; RBC Distribution Width 12.6 % (11.5-14.5); Red Blood Cell (RBC) Count 3.64 mill/uL (4.70-6.10); White Blood Cell (WBC) Count 14.9 thou/uL (4.8-10.8)
[2021-05-03] MEDS ORDERED: Fentanyl CADD 100 ML ONE ×2 (05:27→21:11)
[2021-05-03] MEDS: Fentanyl CADD 100 ML IV PRN ×2 (05:29→21:27)
[2021-05-03] MEDS: Propofol 1,000 MG/100 ML VIAL IV PRN ×2 (05:46→17:53)
[2021-05-03] MEDS: Vancomycin 1.5 GRAM/300 ML BAG 1.5 GM in Premix Bag 1 BAG IVPB SCH ×2 (06:15→17:55)
[2021-05-03] MEDS: Insulin Regular 300 UNITS/3 ML VIAL SC SCH ×3 (06:39→18:34)
[2021-05-03] MEDS: MEROPENEM 1 GM/50 ML 1 GM in Premix Bag 1 BAG IVPB SCH ×2 (08:38→15:54)
[2021-05-03] MEDS: Cholecalciferol 1,000 UNITS (25 MCG) TAB PO SCH (08:38)
[2021-05-03 08:39] LABS: Actual Bicarbonate (HCO3a) 30.8 mEq/L (22-28); Base Excess (BEa) 6.8 mEq/L (-2.0 to +3.0); CO2 Tension 41.4 mmHg (35.0-45.0); Calcium, Ionized (arterial) 1.12 mmol/L (1.12-1.30); Carboxyhemoglobin (COHb) 0.3 gm% (0.0-3.0); Hemoglobin (Hb) 12.2 g/dL (14.0-18.0); O2 Tension (PaO2), arterial 99.1 mmHg (80.0-100.0); Potassium - ABG Lab 4.08 mmol/L (3.70-5.30); pH, Arterial 7.49 (7.35-7.45)
[2021-05-03] MEDS: Micafungin 100 MG in Sodium Chloride 0.9% 100 ML IVPB SCH (08:39)
[2021-05-03] MEDS: Zinc Sulfate 220 MG CAP PO SCH (08:39)
[2021-05-03] MEDS: Enoxaparin Sodium 40 MG/0.4 ML SYRINGE SC SCH ×2 (08:39→19:59)
[2021-05-03] MEDS: Famotidine 20 MG TAB PO SCH ×2 (08:39→20:00)
[2021-05-03] MEDS: Ascorbic Acid 500 mg Chewable Tablet PO SCH (08:39)
[2021-05-03] MEDS: Thiamine 100 MG TAB PO SCH (08:39)
[2021-05-03 08:56] LABS: Puncture Site Arterial Line
[2021-05-03] MEDS: BARICITINIB 2 MG TAB PO SCH (20:00)
[2021-05-04] MEDS: MEROPENEM 1 GM/50 ML 1 GM in Premix Bag 1 BAG IVPB SCH ×3 (00:10→15:19)
[2021-05-04] MEDS: Insulin Regular 300 UNITS/3 ML VIAL SC SCH ×4 (00:50→18:52)
[2021-05-04 04:15] LABS: Anion Gap 12 mmol/L (10-20); BUN (Urea Nitrogen) 32 mg/dL (8.4-25.7); Calc. Creatinine Clearance 207 mL/min (70-130); Calcium 8.5 mg/dL (7.8-10.44); Carbon Dioxide 29 mmol/L (22-29); Chloride 104 mmol/L (98-107); Glucose 114 mg/dL (70-105); Potassium 4.1 mmol/L (3.5-5.1); Sodium 141 mmol/L (136-145)
[2021-05-04 04:23] LABS: Vancomycin, Trough 17.6 ug/mL
[2021-05-04 05:22] LABS: Band 2 % (5-11); Eosinophils 1 % (0-10); Hemoglobin 12.2 g/dL (14.0-18.0); Lymphocytes 12 % (21-51); MDiff Complete? YES; Mean Corpuscular HGB CONC 33.9 g/dL (32.0-36.0); Mean Corpuscular Hemoglobin 32.1 pg (27.0-31.0); Mean Corpuscular Volume 94.8 fL (78.0-98.0); Mean Platelet Volume 9.3 fL (7.4-10.4); Monocytes 3 % (0-10); Neutrophil 81 % (42-75); Platelet Count 269 thou/uL (130-400); Platelet Morphology Comment Appears Adequate; RBC Distribution Width 12.6 % (11.5-14.5); RBC Morphology Normal; Reactive Lymphocytes 1 % (0-10); Red Blood Cell (RBC) Count 3.81 mill/uL (4.70-6.10); White Blood Cell (WBC) Count 12.3 thou/uL (4.8-10.8)
[2021-05-04] MEDS: Vancomycin 1.5 GRAM/300 ML BAG 1.5 GM in Premix Bag 1 BAG IVPB SCH ×2 (06:35→17:29)
[2021-05-04] MEDS: Ascorbic Acid 500 mg Chewable Tablet PO SCH (08:18)
[2021-05-04] MEDS: Cholecalciferol 1,000 UNITS (25 MCG) TAB PO SCH (08:18)
[2021-05-04] MEDS: Famotidine 20 MG TAB PO SCH ×2 (08:19→20:10)
[2021-05-04] MEDS: Enoxaparin Sodium 40 MG/0.4 ML SYRINGE SC SCH ×2 (08:19→20:09)
[2021-05-04] MEDS: Thiamine 100 MG TAB PO SCH (08:19)
[2021-05-04] MEDS: Micafungin 100 MG in Sodium Chloride 0.9% 100 ML IVPB SCH (08:19)
[2021-05-04] MEDS: Zinc Sulfate 220 MG CAP PO SCH (08:20)
[2021-05-04 08:36] LABS: Actual Bicarbonate (HCO3a) 27.9 mEq/L (22-28); Base Excess (BEa) 3.9 mEq/L (-2.0 to +3.0); CO2 Tension 39.8 mmHg (35.0-45.0); Calcium, Ionized (arterial) 1.17 mmol/L (1.12-1.30); Carboxyhemoglobin (COHb) 0.8 gm% (0.0-3.0); Hemoglobin (Hb) 12.9 g/dL (14.0-18.0); O2 Tension (PaO2), arterial 69.8 mmHg (80.0-100.0); Potassium - ABG Lab 4.18 mmol/L (3.70-5.30); pH, Arterial 7.46 (7.35-7.45)
[2021-05-04 08:42] LABS: Puncture Site Arterial Line
[2021-05-04 09:13] LABS: ALT (SGPT) 163 U/L (8-55); AST (SGOT) 56 U/L (5-34); Albumin 2.7 g/dL (3.5-5.0); Alkaline Phosphatase 72 U/L (40-110); Bilirubin, Direct 0.4 mg/dL (0.1-0.3); Bilirubin, Total 0.8 mg/dL (0.2-1.2); Protein, Total 5.5 g/dL (6.0-8.3)
[2021-05-04] MEDS ORDERED: Fentanyl CADD 100 ML ONE (20:06)
[2021-05-04] MEDS: Fentanyl CADD 100 ML IV PRN (20:09)
[2021-05-04] MEDS: BARICITINIB 2 MG TAB PO SCH (20:10)
[2021-05-05] MEDS: MEROPENEM 1 GM/50 ML 1 GM in Premix Bag 1 BAG IVPB SCH ×3 (00:01→16:51)
[2021-05-05] MEDS: Insulin Regular 300 UNITS/3 ML VIAL SC SCH ×4 (00:44→17:27)
[2021-05-05 04:43] LABS: Band 8 % (5-11); Hemoglobin 10.4 g/dL (14.0-18.0); Hypochromia SLIGHT = 6-15 cells (100X) (0-5/hpf); Lymphocytes 8 % (21-51); MDiff Complete? YES; Mean Corpuscular HGB CONC 33.2 g/dL (32.0-36.0); Mean Corpuscular Hemoglobin 31.4 pg (27.0-31.0); Mean Corpuscular Volume 94.5 fL (78.0-98.0); Mean Platelet Volume 9.8 fL (7.4-10.4); Monocytes 5 % (0-10); Neutrophil 79 % (42-75); Platelet Count 332 thou/uL (130-400); Platelet Morphology Comment Appears Adequate; RBC Distribution Width 12.5 % (11.5-14.5); Red Blood Cell (RBC) Count 3.33 mill/uL (4.70-6.10); White Blood Cell (WBC) Count 18.7 thou/uL (4.8-10.8)
[2021-05-05 04:47] LABS: Phosphorus 3.7 mg/dL (2.3-4.7)
[2021-05-05 04:50] LABS: ALT (SGPT) 136 U/L (8-55); AST (SGOT) 36 U/L (5-34); Albumin 2.7 g/dL (3.5-5.0); Alkaline Phosphatase 81 U/L (40-110); Anion Gap 11 mmol/L (10-20); BUN (Urea Nitrogen) 24 mg/dL (8.4-25.7); Bilirubin, Total 0.8 mg/dL (0.2-1.2); Calc. Creatinine Clearance 213 mL/min (70-130); Carbon Dioxide 28 mmol/L (22-29); Chloride 104 mmol/L (98-107); Globulin 3.2 g/dL (2.4-3.5); Glucose 170 mg/dL (70-105); Magnesium 1.9 mg/dL (1.6-2.6); Potassium 3.9 mmol/L (3.5-5.1); Protein, Total 5.9 g/dL (6.0-8.3); Sodium 139 mmol/L (136-145)
[2021-05-05] MEDS: Vancomycin 1.5 GRAM/300 ML BAG 1.5 GM in Premix Bag 1 BAG IVPB SCH ×2 (06:05→18:45)
[2021-05-05] MEDS: Enoxaparin Sodium 40 MG/0.4 ML SYRINGE SC SCH (08:12)
[2021-05-05] MEDS: Ascorbic Acid 500 mg Chewable Tablet PO SCH (08:12)
[2021-05-05] MEDS: Cholecalciferol 1,000 UNITS (25 MCG) TAB PO SCH (08:12)
[2021-05-05] MEDS: Famotidine 20 MG TAB PO SCH ×2 (08:12→20:21)
[2021-05-05] MEDS: Thiamine 100 MG TAB PO SCH (08:13)
[2021-05-05] MEDS: Zinc Sulfate 220 MG CAP PO SCH (08:13)
[2021-05-05 08:56] LABS: Actual Bicarbonate (HCO3a) 27.5 mEq/L (22-28); Base Excess (BEa) 2.4 mEq/L (-2.0 to +3.0); CO2 Tension 44.6 mmHg (35.0-45.0); Calcium, Ionized (arterial) 1.17 mmol/L (1.12-1.30); Carboxyhemoglobin (COHb) 0.9 gm% (0.0-3.0); Hemoglobin (Hb) 13.4 g/dL (14.0-18.0); O2 Tension (PaO2), arterial 68.7 mmHg (80.0-100.0); Potassium - ABG Lab 4.29 mmol/L (3.70-5.30); pH, Arterial 7.41 (7.35-7.45)
[2021-05-05 08:57] LABS: Puncture Site Arterial Line
[2021-05-05] MEDS: Micafungin 100 MG in Sodium Chloride 0.9% 100 ML IVPB SCH (10:45)
[2021-05-05] MEDS: Lorazepam 2 MG/ML VIAL SLOW IVP SCH ×4 (10:45→22:43)
[2021-05-05] MEDS ORDERED: METHadone HCl 10 MG TAB PO SCH (11:00)
[2021-05-05] MEDS: BARICITINIB 2 MG TAB PO SCH (20:21)
[2021-05-06] MEDS: Insulin Regular 300 UNITS/3 ML VIAL SC SCH ×4 (00:08→19:28)
[2021-05-06] MEDS: MEROPENEM 1 GM/50 ML 1 GM in Premix Bag 1 BAG IVPB SCH ×2 (00:47→08:21)
[2021-05-06] MEDS: Lorazepam 2 MG/ML VIAL SLOW IVP SCH ×3 (03:13→11:32)
[2021-05-06 04:58] LABS: Band 6 % (5-11); Hemoglobin 11.6 g/dL (14.0-18.0); Lymphocytes 15 % (21-51); MDiff Complete? YES; Mean Corpuscular HGB CONC 34.2 g/dL (32.0-36.0); Mean Corpuscular Hemoglobin 32.3 pg (27.0-31.0); Mean Corpuscular Volume 94.3 fL (78.0-98.0); Mean Platelet Volume 9.4 fL (7.4-10.4); Monocytes 8 % (0-10); Neutrophil 71 % (42-75); Platelet Count 278 thou/uL (130-400); Platelet Morphology Comment Appears Adequate; RBC Distribution Width 12.6 % (11.5-14.5); RBC Morphology Normal; Red Blood Cell (RBC) Count 3.59 mill/uL (4.70-6.10); White Blood Cell (WBC) Count 12.1 thou/uL (4.8-10.8)
[2021-05-06 05:02] LABS: Phosphorus 3.2 mg/dL (2.3-4.7)
[2021-05-06 05:05] LABS: ALT (SGPT) 87 U/L (8-55); AST (SGOT) 24 U/L (5-34); Albumin 2.6 g/dL (3.5-5.0); Alkaline Phosphatase 70 U/L (40-110); Anion Gap 11 mmol/L (10-20); BUN (Urea Nitrogen) 24 mg/dL (8.4-25.7); Bilirubin, Total 0.6 mg/dL (0.2-1.2); Calc. Creatinine Clearance 223 mL/min (70-130); Calcium 8.4 mg/dL (7.8-10.44); Carbon Dioxide 28 mmol/L (22-29); Chloride 106 mmol/L (98-107); Globulin 2.9 g/dL (2.4-3.5); Glucose 155 mg/dL (70-105); Magnesium 1.8 mg/dL (1.6-2.6); Potassium 3.7 mmol/L (3.5-5.1); Protein, Total 5.5 g/dL (6.0-8.3); Sodium 141 mmol/L (136-145)
[2021-05-06 06:29] LABS: Vancomycin, Trough 13.4 ug/mL
[2021-05-06] MEDS: Vancomycin 1.5 GRAM/300 ML BAG 1.5 GM in Premix Bag 1 BAG IVPB SCH (06:45)
[2021-05-06 08:08] LABS: Actual Bicarbonate (HCO3a) 27.1 mEq/L (22-28); Base Excess (BEa) 2.9 mEq/L (-2.0 to +3.0); CO2 Tension 40.1 mmHg (35.0-45.0); Calcium, Ionized (arterial) 1.11 mmol/L (1.12-1.30); Carboxyhemoglobin (COHb) 0.3 gm% (0.0-3.0); Hemoglobin (Hb) 11.8 g/dL (14.0-18.0); O2 Tension (PaO2), arterial 78.6 mmHg (80.0-100.0); Potassium - ABG Lab 3.49 mmol/L (3.70-5.30); pH, Arterial 7.45 (7.35-7.45)
[2021-05-06 08:10] LABS: ALV-art Gradient 156.475 mmHg (0-20); Puncture Site Arterial Line
[2021-05-06] MEDS: Ascorbic Acid 500 mg Chewable Tablet PO SCH (08:21)
[2021-05-06] MEDS: Famotidine 20 MG TAB PO SCH ×2 (08:22→22:38)
[2021-05-06] MEDS: Zinc Sulfate 220 MG CAP PO SCH (08:23)
[2021-05-06] MEDS: Thiamine 100 MG TAB PO SCH (08:23)
[2021-05-06] MEDS: Cholecalciferol 1,000 UNITS (25 MCG) TAB PO SCH (08:46)
[2021-05-06] MEDS ORDERED: METHadone HCl 10 MG TAB PO SCH ×3 (09:00→13:15)
[2021-05-06] MEDS ORDERED: Lorazepam 2 MG/ML VIAL SLOW IVP SCH (14:00)
[2021-05-06] MEDS: Micafungin 100 MG in Sodium Chloride 0.9% 100 ML IVPB SCH (19:29)
[2021-05-06] MEDS: BARICITINIB 2 MG TAB PO SCH (22:38)
[2021-05-07] MEDS: Insulin Regular 300 UNITS/3 ML VIAL SC SCH ×4 (00:55→17:40)
[2021-05-07] MEDS ORDERED: Sodium Chloride 0.9% 500 ML IV SCH (02:15)
[2021-05-07 05:08] LABS: Hemoglobin 12.1 g/dL (14.0-18.0); Mean Corpuscular HGB CONC 33.5 g/dL (32.0-36.0); Mean Corpuscular Hemoglobin 31.6 pg (27.0-31.0); Mean Corpuscular Volume 94.3 fL (78.0-98.0); Mean Platelet Volume 9.1 fL (7.4-10.4); Platelet Count 325 thou/uL (130-400); RBC Distribution Width 12.6 % (11.5-14.5); Red Blood Cell (RBC) Count 3.84 mill/uL (4.70-6.10); White Blood Cell (WBC) Count 13.5 thou/uL (4.8-10.8)
[2021-05-07 05:09] LABS: Anion Gap 8 mmol/L (10-20); BUN (Urea Nitrogen) 16 mg/dL (8.4-25.7); Calc. Creatinine Clearance 224 mL/min (70-130); Calcium 8.6 mg/dL (7.8-10.44); Carbon Dioxide 31 mmol/L (22-29); Chloride 104 mmol/L (98-107); Glucose 122 mg/dL (70-105); Potassium 3.4 mmol/L (3.5-5.1); Sodium 140 mmol/L (136-145)
[2021-05-07 07:11] LABS: Band 21 % (5-11); Lymphocytes 9 % (21-51); MDiff Complete? YES; Monocytes 3 % (0-10); Neutrophil 67 % (42-75)
[2021-05-07] MEDS: Ascorbic Acid 500 mg Chewable Tablet PO SCH (08:39)
[2021-05-07] MEDS: Cholecalciferol 1,000 UNITS (25 MCG) TAB PO SCH (08:40)
[2021-05-07] MEDS: Famotidine 20 MG TAB PO SCH ×2 (08:40→21:35)
[2021-05-07] MEDS: Zinc Sulfate 220 MG CAP PO SCH (08:40)
[2021-05-07] MEDS: Thiamine 100 MG TAB PO SCH (08:40)
[2021-05-07] MEDS ORDERED: METHadone HCl 10 MG TAB PO SCH (09:00)
[2021-05-07] MEDS ORDERED: Lactated Ringer's 1,000 ML IV SCH (09:30)
[2021-05-07] MEDS: Lorazepam 2 MG/ML VIAL SLOW IVP SCH ×2 (09:37→22:12)
[2021-05-07] MEDS: Potassium Chloride 20 MEQ in Premix Bag 1 BAG IVPB SCH ×2 (09:38→11:39)
[2021-05-07] MEDS ORDERED: Guaifenesin DM 100-10/5 ML UDCUP PO PRN ×2 (11:56→16:00)
[2021-05-07] MEDS ORDERED: Potassium Chloride 20 MEQ TAB PO SCH (12:00)
[2021-05-07] MEDS: BARICITINIB 2 MG TAB PO SCH (21:35)
[2021-05-08] MEDS: Insulin Regular 300 UNITS/3 ML VIAL SC SCH ×5 (01:23→23:44)
[2021-05-08 04:40] LABS: Hemoglobin 11.6 g/dL (14.0-18.0); Mean Corpuscular HGB CONC 33.6 g/dL (32.0-36.0); Mean Corpuscular Hemoglobin 31.6 pg (27.0-31.0); Mean Corpuscular Volume 94.2 fL (78.0-98.0); Mean Platelet Volume 8.8 fL (7.4-10.4); Platelet Count 291 thou/uL (130-400); RBC Distribution Width 12.5 % (11.5-14.5); Red Blood Cell (RBC) Count 3.67 mill/uL (4.70-6.10); White Blood Cell (WBC) Count 12.7 thou/uL (4.8-10.8)
[2021-05-08 04:57] LABS: ALT (SGPT) 66 U/L (8-55); AST (SGOT) 23 U/L (5-34); Albumin 2.7 g/dL (3.5-5.0); Alkaline Phosphatase 83 U/L (40-110); Anion Gap 15 mmol/L (10-20); BUN (Urea Nitrogen) 17 mg/dL (8.4-25.7); Calc. Creatinine Clearance 218 mL/min (70-130); Calcium 8.5 mg/dL (7.8-10.44); Carbon Dioxide 24 mmol/L (22-29); Chloride 105 mmol/L (98-107); Globulin 3.3 g/dL (2.4-3.5); Glucose 115 mg/dL (70-105); Magnesium 1.9 mg/dL (1.6-2.6); Potassium 3.5 mmol/L (3.5-5.1); Sodium 140 mmol/L (136-145)
[2021-05-08 05:18] LABS: Band 13 % (5-11); Eosinophils 1 % (0-10); Lymphocytes 10 % (21-51); MDiff Complete? YES; Monocytes 4 % (0-10); Neutrophil 72 % (42-75); Platelet Morphology Comment Appears Adequate; Polychromasia SLIGHT = 2-3 cells (100X) (0-2/hpf)
[2021-05-08] MEDS ORDERED: Lorazepam 2 MG/ML VIAL SLOW IVP SCH (09:00)
[2021-05-08] MEDS: Loratadine 10 MG TAB PO SCH (09:29)
[2021-05-08] MEDS: Ascorbic Acid 500 mg Chewable Tablet PO SCH (09:29)
[2021-05-08] MEDS: Cholecalciferol 1,000 UNITS (25 MCG) TAB PO SCH (09:29)
[2021-05-08] MEDS: Famotidine 20 MG TAB PO SCH ×2 (09:29→20:43)
[2021-05-08] MEDS: Micafungin 100 MG in Sodium Chloride 0.9% 100 ML IVPB SCH (11:01)
[2021-05-08 11:27] LABS: Bacteria/HPF None Seen HPF (None Seen); Bilirubin Negative (Negative); Blood, Urine 2+ (Negative); Clarity Clear (Clear); Glucose, Urine (Dipstick) Normal (Negative); Ketone, Urine 20 mg/dL (Negative); Leukocyte 25 Leu/uL (Negative); Nitrite Negative (Negative); Protein, Urine (Dipstick) 50 mg/dL (Neg-Trace); RBC/HPF 21-50 HPF (0-3); Specific Gravity, Urine 1.022 (1.002-1.036); Squamous Epithelial None Seen HPF (0-3); Urobilinogen Normal mg/dL (Less than 2); pH, Urine 5.5 (5.0-9.0)
[2021-05-08 11:29] LABS: Urine Culture Reflex Yes Yes
[2021-05-08] MEDS: Metoprolol Tartrate 25 MG TAB PO SCH (20:43)
[2021-05-08] MEDS: Lorazepam 2 MG/ML VIAL SLOW IVP PRN (23:21)
[2021-05-09] MEDS: Lorazepam 2 MG/ML VIAL SLOW IVP PRN (03:25)
[2021-05-09 04:40] LABS: ALT (SGPT) 54 U/L (8-55); AST (SGOT) 19 U/L (5-34); Albumin 2.9 g/dL (3.5-5.0); Alkaline Phosphatase 81 U/L (40-110); Anion Gap 12 mmol/L (10-20); BUN (Urea Nitrogen) 13 mg/dL (8.4-25.7); Bilirubin, Total 0.9 mg/dL (0.2-1.2); Calc. Creatinine Clearance 193 mL/min (70-130); Calcium 8.7 mg/dL (7.8-10.44); Carbon Dioxide 30 mmol/L (22-29); Chloride 102 mmol/L (98-107); Globulin 3.3 g/dL (2.4-3.5); Glucose 120 mg/dL (70-105); Magnesium 1.9 mg/dL (1.6-2.6); Protein, Total 6.2 g/dL (6.0-8.3); Sodium 141 mmol/L (136-145)
[2021-05-09 04:50] LABS: Potassium 2.8 mmol/L (3.5-5.1)
[2021-05-09 05:27] LABS: Band 11 % (5-11); Hemoglobin 11.8 g/dL (14.0-18.0); Lymphocytes 19 % (21-51); MDiff Complete? YES; Mean Corpuscular HGB CONC 32.4 g/dL (32.0-36.0); Mean Corpuscular Hemoglobin 30.7 pg (27.0-31.0); Mean Corpuscular Volume 94.7 fL (78.0-98.0); Mean Platelet Volume 9.2 fL (7.4-10.4); Neutrophil 70 % (42-75); Platelet Count 314 thou/uL (130-400); RBC Distribution Width 12.6 % (11.5-14.5); Red Blood Cell (RBC) Count 3.85 mill/uL (4.70-6.10); White Blood Cell (WBC) Count 13.5 thou/uL (4.8-10.8)
[2021-05-09] MEDS ORDERED: Electrolyte Replacement Protocol 1 EACH FS PRN (05:45)
[2021-05-09] MEDS ORDERED: Magnesium 2 GM/50 ML 2 GM in Premix Bag 1 BAG IVPB SCH (06:00)
[2021-05-09] MEDS: Insulin Regular 300 UNITS/3 ML VIAL SC SCH ×2 (06:04→16:51)
[2021-05-09] MEDS: Potassium Chloride 40 MEQ in Sodium Chloride 0.9% 250 ML 250 ML IVPB SCH ×2 (06:05→11:46)
[2021-05-09] MEDS: Cholecalciferol 1,000 UNITS (25 MCG) TAB PO SCH (09:14)
[2021-05-09] MEDS: Ascorbic Acid 500 mg Chewable Tablet PO SCH (09:14)
[2021-05-09] MEDS: Metoprolol Tartrate 25 MG TAB PO SCH ×2 (09:14→20:47)
[2021-05-09] MEDS: Famotidine 20 MG TAB PO SCH ×2 (09:14→20:47)
[2021-05-09] MEDS: Loratadine 10 MG TAB PO SCH (09:17)
[2021-05-09] MEDS: Micafungin 100 MG in Sodium Chloride 0.9% 100 ML IVPB SCH (09:39)
[2021-05-09] MEDS: VANCOMYCIN 2 GRAM/400 ML BAG 2 GM in Premix Bag 1 BAG IVPB SCH (13:54)
[2021-05-10] MEDS: VANCOMYCIN 2 GRAM/400 ML BAG 2 GM in Premix Bag 1 BAG IVPB SCH ×2 (00:34→14:02)
[2021-05-10] MEDS: Acetaminophen 650 MG/20.3 ML UDCUP PO PRN ×2 (07:47→18:10)
[2021-05-10] MEDS: Loratadine 10 MG TAB PO SCH (08:55)
[2021-05-10] MEDS: Famotidine 20 MG TAB PO SCH ×2 (08:55→20:48)
[2021-05-10] MEDS: Ascorbic Acid 500 mg Chewable Tablet PO SCH (08:55)
[2021-05-10] MEDS: Metoprolol Tartrate 25 MG TAB PO SCH ×2 (08:55→20:48)
[2021-05-10] MEDS: Cholecalciferol 1,000 UNITS (25 MCG) TAB PO SCH (08:55)
[2021-05-10 09:55] LABS: Anion Gap 13 mmol/L (10-20); BUN (Urea Nitrogen) 9 mg/dL (8.4-25.7); Calc. Creatinine Clearance 198 mL/min (70-130); Calcium 8.1 mg/dL (7.8-10.44); Carbon Dioxide 24 mmol/L (22-29); Chloride 104 mmol/L (98-107); Glucose 125 mg/dL (70-105); Sodium 139 mmol/L (136-145)
[2021-05-10] MEDS: Micafungin 100 MG in Sodium Chloride 0.9% 100 ML IVPB SCH (09:55)
[2021-05-10 09:58] LABS: Potassium 2.4 mmol/L (3.5-5.1)
[2021-05-10 10:05] LABS: Hemoglobin 10.6 g/dL (14.0-18.0); Mean Corpuscular HGB CONC 32.8 g/dL (32.0-36.0); Mean Corpuscular Hemoglobin 30.5 pg (27.0-31.0); Mean Corpuscular Volume 93.1 fL (78.0-98.0); Mean Platelet Volume 9.2 fL (7.4-10.4); Platelet Count 234 thou/uL (130-400); RBC Distribution Width 12.6 % (11.5-14.5); Red Blood Cell (RBC) Count 3.47 mill/uL (4.70-6.10); White Blood Cell (WBC) Count 12.8 thou/uL (4.8-10.8)
[2021-05-10] MEDS: Potassium Chloride 40 MEQ in Sodium Chloride 0.9% 250 ML 250 ML IVPB SCH ×2 (11:11→15:33)
[2021-05-10] MEDS: Potassium Chloride 20 MEQ TAB PO SCH ×2 (11:11→14:02)
[2021-05-10 11:21] LABS: Band 5 % (5-11); Eosinophils 1 % (0-10); Lymphocytes 11 % (21-51); MDiff Complete? YES; Monocytes 5 % (0-10); Neutrophil 77 % (42-75); Platelet Morphology Comment Appears Adequate; Polychromasia SLIGHT = 2-3 cells (100X) (0-2/hpf); Reactive Lymphocytes 1 % (0-10)
[2021-05-10] MEDS ORDERED: Bisacodyl 5 MG TAB PO PRN (13:40)
[2021-05-10 14:20] LABS: Anion Gap 14 mmol/L (10-20); BUN (Urea Nitrogen) 12 mg/dL (8.4-25.7); Calc. Creatinine Clearance 183 mL/min (70-130); Calcium 8.4 mg/dL (7.8-10.44); Carbon Dioxide 21 mmol/L (22-29); Chloride 109 mmol/L (98-107); Glucose 168 mg/dL (70-105); Potassium 4.4 mmol/L (3.5-5.1); Sodium 140 mmol/L (136-145)
[2021-05-10 16:11] LABS: CO2 Tension 30.5 mmHg (35.0-45.0); pH, Arterial 7.53 (7.35-7.45)
[2021-05-10 16:12] LABS: Base Excess (BEa) 2.9 mEq/L (-2.0 to +3.0); Carboxyhemoglobin (COHb) 1.7 gm% (0.0-3.0); Hemoglobin (Hb) 11.4 g/dL (14.0-18.0); O2 Tension (PaO2), arterial 40.8 mmHg (80.0-100.0)
[2021-05-10 16:13] LABS: Calcium, Ionized (arterial) 1.06 mmol/L (1.12-1.30); Potassium - ABG Lab 2.89 mmol/L (3.70-5.30); Puncture Site RRA
[2021-05-10 16:15] LABS: ALV-art Gradient 234.795 mmHg (0-20)
[2021-05-11] MEDS: VANCOMYCIN 2 GRAM/400 ML BAG 2 GM in Premix Bag 1 BAG IVPB SCH ×2 (02:00→13:31)
[2021-05-11] MEDS: Loratadine 10 MG TAB PO SCH (08:12)
[2021-05-11] MEDS: Acetaminophen 650 MG/20.3 ML UDCUP PO PRN (08:12)
[2021-05-11] MEDS: Ascorbic Acid 500 mg Chewable Tablet PO SCH (08:12)
[2021-05-11] MEDS: Metoprolol Tartrate 25 MG TAB PO SCH ×2 (08:12→22:16)
[2021-05-11] MEDS: Cholecalciferol 1,000 UNITS (25 MCG) TAB PO SCH (08:12)
[2021-05-11] MEDS: Famotidine 20 MG TAB PO SCH ×2 (08:12→22:16)
[2021-05-11] MEDS ORDERED: Piperacillin/Tazobactam 3.375 GM in Sodium Chloride 0.9% 100 ML IVPB SCH ×2 (08:30→09:00)
[2021-05-11] MEDS: Dexamethasone 10 MG/ML VIAL SLOW IVP SCH ×2 (09:45→22:16)
[2021-05-11] MEDS: Micafungin 100 MG in Sodium Chloride 0.9% 100 ML IVPB SCH (09:46)
[2021-05-11 10:39] LABS: Hemoglobin 10.3 g/dL (14.0-18.0); Mean Corpuscular HGB CONC 33.9 g/dL (32.0-36.0); Mean Corpuscular Hemoglobin 31.8 pg (27.0-31.0); Mean Corpuscular Volume 93.8 fL (78.0-98.0); Mean Platelet Volume 8.4 fL (7.4-10.4); Platelet Count 256 thou/uL (130-400); RBC Distribution Width 12.6 % (11.5-14.5); Red Blood Cell (RBC) Count 3.24 mill/uL (4.70-6.10); White Blood Cell (WBC) Count 12.8 thou/uL (4.8-10.8)
[2021-05-11 10:54] LABS: Anion Gap 11 mmol/L (10-20); BUN (Urea Nitrogen) 9 mg/dL (8.4-25.7); Calc. Creatinine Clearance 206 mL/min (70-130); Calcium 8.3 mg/dL (7.8-10.44); Carbon Dioxide 26 mmol/L (22-29); Chloride 108 mmol/L (98-107); Glucose 105 mg/dL (70-105); Magnesium 1.8 mg/dL (1.6-2.6); Sodium 142 mmol/L (136-145)
[2021-05-11 10:57] LABS: Potassium 2.8 mmol/L (3.5-5.1)
[2021-05-11 11:19] LABS: Band 10 % (5-11); Eosinophils 4 % (0-10); Lymphocytes 9 % (21-51); MDiff Complete? YES; Monocytes 4 % (0-10); Neutrophil 73 % (42-75); Platelet Morphology Comment Appears Adequate; Polychromasia SLIGHT = 2-3 cells (100X) (0-2/hpf)
[2021-05-11] MEDS ORDERED: Furosemide 40 MG/4 ML VIAL ONE (11:58)
[2021-05-11 12:05] LABS: Actual Bicarbonate (HCO3a) 20.7 mEq/L (22-28); CO2 Tension 32.7 mmHg (35.0-45.0); Calcium, Ionized (arterial) 1.11 mmol/L (1.12-1.30); Carboxyhemoglobin (COHb) 1.3 gm% (0.0-3.0); Hemoglobin (Hb) 11.9 g/dL (14.0-18.0); O2 Tension (PaO2), arterial 68.6 mmHg (80.0-100.0); Potassium - ABG Lab 3.08 mmol/L (3.70-5.30); pH, Arterial 7.42 (7.35-7.45)
[2021-05-11 12:10] LABS: ALV-art Gradient 603.525 mmHg (0-20); Puncture Site LRA
[2021-05-11] MEDS ORDERED: Magnesium 2 GM/50 ML 2 GM in Premix Bag 1 BAG IVPB SCH (12:15)
[2021-05-11] MEDS ORDERED: Potassium Chloride 20 MEQ TAB PO SCH (13:00)
[2021-05-11] MEDS: Potassium Chloride 40 MEQ in Sodium Chloride 0.9% 250 ML 250 ML IVPB SCH ×2 (13:59→22:15)
[2021-05-11] MEDS ORDERED: Moxifloxacin 0.5% Opth Drop 3 ML BOT R EYE SCH (15:00)
[2021-05-11] MEDS: Enoxaparin Sodium 40 MG/0.4 ML SYRINGE SC SCH (15:47)
[2021-05-11 17:22] LABS: Potassium 6.2 mmol/L (3.5-5.1)
[2021-05-11] MEDS: Piperacillin/Tazobactam 3.375 GM in Sodium Chloride 0.9% 100 ML IVPB SCH (17:46)
[2021-05-11 18:56] LABS: Potassium 3.5 mmol/L (3.5-5.1)
[2021-05-12 00:55] LABS: Vancomycin, Trough 15.2 ug/mL
[2021-05-12] MEDS: Piperacillin/Tazobactam 3.375 GM in Sodium Chloride 0.9% 100 ML IVPB SCH ×3 (01:28→18:11)
[2021-05-12] MEDS: VANCOMYCIN 2 GRAM/400 ML BAG 2 GM in Premix Bag 1 BAG IVPB SCH ×2 (02:03→14:49)
[2021-05-12 04:29] LABS: ALT (SGPT) 35 U/L (8-55); AST (SGOT) 14 U/L (5-34); Albumin 2.7 g/dL (3.5-5.0); Alkaline Phosphatase 75 U/L (40-110); Anion Gap 15 mmol/L (10-20); BUN (Urea Nitrogen) 18 mg/dL (8.4-25.7); Bilirubin, Total 0.6 mg/dL (0.2-1.2); Calc. Creatinine Clearance 199 mL/min (70-130); Calcium 8.6 mg/dL (7.8-10.44); Carbon Dioxide 23 mmol/L (22-29); Chloride 107 mmol/L (98-107); Globulin 3.6 g/dL (2.4-3.5); Glucose 155 mg/dL (70-105); Potassium 3.7 mmol/L (3.5-5.1); Protein, Total 6.3 g/dL (6.0-8.3); Sodium 141 mmol/L (136-145)
[2021-05-12 04:39] LABS: Band 11 % (5-11); Hemoglobin 10.3 g/dL (14.0-18.0); Lymphocytes 8 % (21-51); MDiff Complete? YES; Mean Corpuscular HGB CONC 33.9 g/dL (32.0-36.0); Mean Corpuscular Volume 94.4 fL (78.0-98.0); Mean Platelet Volume 8.7 fL (7.4-10.4); Neutrophil 81 % (42-75); Platelet Count 252 thou/uL (130-400); RBC Distribution Width 12.7 % (11.5-14.5); Red Blood Cell (RBC) Count 3.22 mill/uL (4.70-6.10); White Blood Cell (WBC) Count 8.6 thou/uL (4.8-10.8)
[2021-05-12] MEDS: Famotidine 20 MG TAB PO SCH ×2 (09:19→20:55)
[2021-05-12] MEDS: Metoprolol Tartrate 25 MG TAB PO SCH ×2 (09:19→20:55)
[2021-05-12] MEDS: Ascorbic Acid 500 mg Chewable Tablet PO SCH (09:19)
[2021-05-12] MEDS: Cholecalciferol 1,000 UNITS (25 MCG) TAB PO SCH (09:19)
[2021-05-12] MEDS: Loratadine 10 MG TAB PO SCH (09:19)
[2021-05-12] MEDS: Dexamethasone 10 MG/ML VIAL SLOW IVP SCH ×2 (09:20→20:56)
[2021-05-12] MEDS: Furosemide 40 MG/4 ML VIAL SLOW IVP SCH (09:20)
[2021-05-12] MEDS: Micafungin 100 MG in Sodium Chloride 0.9% 100 ML IVPB SCH (09:22)
[2021-05-12] MEDS: Enoxaparin Sodium 40 MG/0.4 ML SYRINGE SC SCH ×2 (17:19→20:56)
[2021-05-13] MEDS: VANCOMYCIN 2 GRAM/400 ML BAG 2 GM in Premix Bag 1 BAG IVPB SCH ×2 (00:14→15:22)
[2021-05-13] MEDS: Piperacillin/Tazobactam 3.375 GM in Sodium Chloride 0.9% 100 ML IVPB SCH ×3 (00:14→18:00)
[2021-05-13 04:52] LABS: #Lymphocytes 0.7 thou/uL (1.20-3.40); #Monocytes 0.2 thou/uL (0.11-0.59); #Neutrophils 7.2 thou/uL (1.40-6.50); %Eosinophils 0.1 % (0.0-10.0); %Lymphocytes 8.5 % (21.0-51.0); %Monocytes 2.9 % (0.0-10.0); %Neutrophils 88.5 % (42.0-75.0); Hemoglobin 10.3 g/dL (14.0-18.0); Mean Corpuscular HGB CONC 33.2 g/dL (32.0-36.0); Mean Corpuscular Volume 93.4 fL (78.0-98.0); Mean Platelet Volume 8.7 fL (7.4-10.4); Platelet Count 315 thou/uL (130-400); RBC Distribution Width 12.6 % (11.5-14.5); Red Blood Cell (RBC) Count 3.31 mill/uL (4.70-6.10); White Blood Cell (WBC) Count 8.1 thou/uL (4.8-10.8)
[2021-05-13 05:08] LABS: Phosphorus 2.9 mg/dL (2.3-4.7)
[2021-05-13 05:10] LABS: ALT (SGPT) 41 U/L (8-55); AST (SGOT) 15 U/L (5-34); Albumin 2.9 g/dL (3.5-5.0); Alkaline Phosphatase 73 U/L (40-110); Anion Gap 14 mmol/L (10-20); BUN (Urea Nitrogen) 20 mg/dL (8.4-25.7); Bilirubin, Total 0.5 mg/dL (0.2-1.2); Calc. Creatinine Clearance 174 mL/min (70-130); Calcium 8.4 mg/dL (7.8-10.44); Carbon Dioxide 27 mmol/L (22-29); Chloride 104 mmol/L (98-107); Globulin 3.6 g/dL (2.4-3.5); Glucose 182 mg/dL (70-105); Magnesium 1.9 mg/dL (1.6-2.6); Protein, Total 6.5 g/dL (6.0-8.3); Sodium 142 mmol/L (136-145)
[2021-05-13] MEDS: Dexamethasone 10 MG/ML VIAL SLOW IVP SCH ×2 (10:07→20:57)
[2021-05-13] MEDS: Loratadine 10 MG TAB PO SCH (10:08)
[2021-05-13] MEDS: Furosemide 40 MG/4 ML VIAL SLOW IVP SCH (10:08)
[2021-05-13] MEDS: Ascorbic Acid 500 mg Chewable Tablet PO SCH (10:08)
[2021-05-13] MEDS: Famotidine 20 MG TAB PO SCH ×2 (10:08→20:57)
[2021-05-13] MEDS: Cholecalciferol 1,000 UNITS (25 MCG) TAB PO SCH (10:08)
[2021-05-13] MEDS: Metoprolol Tartrate 25 MG TAB PO SCH ×2 (10:08→20:57)
[2021-05-13] MEDS: Potassium Chloride 20 MEQ TAB PO SCH ×2 (10:11→11:49)
[2021-05-13] MEDS: Micafungin 100 MG in Sodium Chloride 0.9% 100 ML IVPB SCH (11:49)
[2021-05-13 12:38] LABS: Vancomycin, Trough 20.4 ug/mL
[2021-05-13 15:52] LABS: Anion Gap 12 mmol/L (10-20); BUN (Urea Nitrogen) 20 mg/dL (8.4-25.7); Calc. Creatinine Clearance 171 mL/min (70-130); Calcium 8.5 mg/dL (7.8-10.44); Carbon Dioxide 29 mmol/L (22-29); Chloride 104 mmol/L (98-107); Glucose 185 mg/dL (70-105); Potassium 3.2 mmol/L (3.5-5.1); Sodium 142 mmol/L (136-145)
[2021-05-13 17:24] LABS: Magnesium 1.9 mg/dL (1.6-2.6)
[2021-05-13] MEDS: VANCOMYCIN 1.75 GM/350 ML BAG 1.75 GM in Premix Bag 1 BAG IVPB SCH (18:00)
[2021-05-13] MEDS: Enoxaparin Sodium 40 MG/0.4 ML SYRINGE SC SCH (20:57)
[2021-05-14] MEDS: Piperacillin/Tazobactam 3.375 GM in Sodium Chloride 0.9% 100 ML IVPB SCH ×3 (00:05→16:53)
[2021-05-14] MEDS: VANCOMYCIN 1.75 GM/350 ML BAG 1.75 GM in Premix Bag 1 BAG IVPB SCH ×2 (03:59→16:53)
[2021-05-14 04:33] LABS: Band 4 % (5-11); Hemoglobin 9.7 g/dL (14.0-18.0); Hypochromia SLIGHT = 6-15 cells (100X) (0-5/hpf); Lymphocytes 15 % (21-51); MDiff Complete? YES; Mean Corpuscular HGB CONC 34.9 g/dL (32.0-36.0); Mean Corpuscular Hemoglobin 32.5 pg (27.0-31.0); Mean Corpuscular Volume 93.1 fL (78.0-98.0); Monocytes 2 % (0-10); Neutrophil 79 % (42-75); Platelet Count 270 thou/uL (130-400); Platelet Morphology Comment Appears Adequate; RBC Distribution Width 12.3 % (11.5-14.5); Red Blood Cell (RBC) Count 2.99 mill/uL (4.70-6.10)
[2021-05-14 04:39] LABS: ALT (SGPT) 63 U/L (8-55); AST (SGOT) 27 U/L (5-34); Albumin 2.7 g/dL (3.5-5.0); Alkaline Phosphatase 68 U/L (40-110); Anion Gap 15 mmol/L (10-20); BUN (Urea Nitrogen) 21 mg/dL (8.4-25.7); Bilirubin, Total 0.5 mg/dL (0.2-1.2); Calc. Creatinine Clearance 171 mL/min (70-130); Carbon Dioxide 26 mmol/L (22-29); Chloride 101 mmol/L (98-107); Globulin 3.3 g/dL (2.4-3.5); Glucose 253 mg/dL (70-105); Magnesium 1.9 mg/dL (1.6-2.6); Potassium 3.3 mmol/L (3.5-5.1); Sodium 139 mmol/L (136-145)
[2021-05-14] MEDS: Ascorbic Acid 500 mg Chewable Tablet PO SCH (09:07)
[2021-05-14] MEDS: Famotidine 20 MG TAB PO SCH ×2 (09:08→20:30)
[2021-05-14] MEDS: Potassium Chloride 20 MEQ TAB PO SCH ×2 (09:08→11:16)
[2021-05-14] MEDS: Cholecalciferol 1,000 UNITS (25 MCG) TAB PO SCH (09:08)
[2021-05-14] MEDS: Loratadine 10 MG TAB PO SCH (09:09)
[2021-05-14] MEDS: Furosemide 40 MG/4 ML VIAL SLOW IVP SCH (09:09)
[2021-05-14] MEDS: Metoprolol Tartrate 25 MG TAB PO SCH ×2 (09:09→22:48)
[2021-05-14] MEDS: Micafungin 100 MG in Sodium Chloride 0.9% 100 ML IVPB SCH (09:12)
[2021-05-14] MEDS: Dexamethasone 4 mg/ml Vial SLOW IVP SCH (09:14)
[2021-05-14 18:44] LABS: Anion Gap 10 mmol/L (10-20); BUN (Urea Nitrogen) 21 mg/dL (8.4-25.7); Calc. Creatinine Clearance 165 mL/min (70-130); Calcium 8.6 mg/dL (7.8-10.44); Carbon Dioxide 30 mmol/L (22-29); Chloride 100 mmol/L (98-107); Glucose 200 mg/dL (70-105); Potassium 3.7 mmol/L (3.5-5.1); Sodium 136 mmol/L (136-145)
[2021-05-14] MEDS: Enoxaparin Sodium 40 MG/0.4 ML SYRINGE SC SCH (20:30)
[2021-05-15] MEDS ORDERED: Piperacillin/Tazobactam 3.375 GM VIAL ONE (00:18)
[2021-05-15] MEDS: Piperacillin/Tazobactam 3.375 GM in Sodium Chloride 0.9% 100 ML IVPB SCH ×3 (00:56→18:26)
[2021-05-15 04:05] LABS: Anion Gap 9 mmol/L (10-20); BUN (Urea Nitrogen) 18 mg/dL (8.4-25.7); Calc. Creatinine Clearance 178 mL/min (70-130); Calcium 8.2 mg/dL (7.8-10.44); Carbon Dioxide 30 mmol/L (22-29); Chloride 100 mmol/L (98-107); Glucose 149 mg/dL (70-105); Magnesium 1.7 mg/dL (1.6-2.6); Potassium 3.3 mmol/L (3.5-5.1); Sodium 136 mmol/L (136-145); Vancomycin, Trough 18.5 ug/mL
[2021-05-15 04:26] LABS: Band 2 % (5-11); Eosinophils 2 % (0-10); Hemoglobin 10.6 g/dL (14.0-18.0); Lymphocytes 9 % (21-51); MDiff Complete? YES; Mean Corpuscular Hemoglobin 32.2 pg (27.0-31.0); Mean Platelet Volume 8.6 fL (7.4-10.4); Monocytes 5 % (0-10); Neutrophil 82 % (42-75); Platelet Count 287 thou/uL (130-400); Platelet Morphology Comment Appears Adequate; RBC Distribution Width 12.3 % (11.5-14.5); Red Blood Cell (RBC) Count 3.28 mill/uL (4.70-6.10); White Blood Cell (WBC) Count 7.2 thou/uL (4.8-10.8)
[2021-05-15] MEDS: VANCOMYCIN 1.75 GM/350 ML BAG 1.75 GM in Premix Bag 1 BAG IVPB SCH ×2 (04:59→16:01)
[2021-05-15] MEDS: Famotidine 20 MG TAB PO SCH (09:26)
[2021-05-15] MEDS: Cholecalciferol 1,000 UNITS (25 MCG) TAB PO SCH (09:26)
[2021-05-15] MEDS: Loratadine 10 MG TAB PO SCH (09:26)
[2021-05-15] MEDS: Ascorbic Acid 500 mg Chewable Tablet PO SCH (09:26)
[2021-05-15] MEDS: Metoprolol Tartrate 25 MG TAB PO SCH ×2 (09:26→20:48)
[2021-05-15] MEDS: Furosemide 40 MG/4 ML VIAL SLOW IVP SCH (09:27)
[2021-05-15] MEDS: Dexamethasone 4 mg/ml Vial SLOW IVP SCH (09:28)
[2021-05-15] MEDS: Micafungin 100 MG in Sodium Chloride 0.9% 100 ML IVPB SCH (09:54)
[2021-05-15] MEDS ORDERED: Mag-Al Plus 1200 MG/1200 MG/120 MG/30 ML UDCUP PO PRN (13:21)
[2021-05-15] MEDS: Potassium Chloride 20 MEQ TAB PO SCH ×2 (16:01→20:48)
[2021-05-15] MEDS: Enoxaparin Sodium 40 MG/0.4 ML SYRINGE SC SCH (20:50)
[2021-05-16] MEDS: VANCOMYCIN 1.75 GM/350 ML BAG 1.75 GM in Premix Bag 1 BAG IVPB SCH ×2 (04:46→15:39)
[2021-05-16] MEDS: Potassium Chloride 20 MEQ TAB PO SCH (04:48)
[2021-05-16 06:16] LABS: Hemoglobin 12.1 g/dL (14.0-18.0); Mean Corpuscular HGB CONC 33.7 g/dL (32.0-36.0); Mean Corpuscular Hemoglobin 31.2 pg (27.0-31.0); Mean Corpuscular Volume 92.3 fL (78.0-98.0); Mean Platelet Volume 10.7 fL (7.4-10.4); Platelet Count 217 thou/uL (130-400); RBC Distribution Width 12.8 % (11.5-14.5); Red Blood Cell (RBC) Count 3.87 mill/uL (4.70-6.10); White Blood Cell (WBC) Count 7.6 thou/uL (4.8-10.8)
[2021-05-16 06:17] LABS: Eosinophils 4 % (0-10); Lymphocytes 23 % (21-51); MDiff Complete? YES; Metamyelocyte 1 % (0-0); Monocytes 5 % (0-10); Neutrophil 67 % (42-75); Platelet Morphology Comment Appears Adequate
[2021-05-16 06:31] LABS: Anion Gap 11 mmol/L (10-20); BUN (Urea Nitrogen) 14 mg/dL (8.4-25.7); Calc. Creatinine Clearance 186 mL/min (70-130); Calcium 8.6 mg/dL (7.8-10.44); Carbon Dioxide 27 mmol/L (22-29); Chloride 103 mmol/L (98-107); Glucose 109 mg/dL (70-105); Potassium 3.4 mmol/L (3.5-5.1); Sodium 138 mmol/L (136-145)
[2021-05-16] MEDS: Piperacillin/Tazobactam 3.375 GM in Sodium Chloride 0.9% 100 ML IVPB SCH ×3 (08:06→17:42)
[2021-05-16] MEDS: Metoprolol Tartrate 25 MG TAB PO SCH ×2 (08:07→20:34)
[2021-05-16] MEDS: Loratadine 10 MG TAB PO SCH (08:07)
[2021-05-16] MEDS: Cholecalciferol 1,000 UNITS (25 MCG) TAB PO SCH (08:07)
[2021-05-16] MEDS: Dexamethasone 4 mg/ml Vial SLOW IVP SCH (08:08)
[2021-05-16] MEDS: Ascorbic Acid 500 mg Chewable Tablet PO SCH (08:08)
[2021-05-16] MEDS: Micafungin 100 MG in Sodium Chloride 0.9% 100 ML IVPB SCH (11:08)
[2021-05-16 17:56] VITALS: BMI 32.8
[2021-05-16] MEDS: Enoxaparin Sodium 40 MG/0.4 ML SYRINGE SC SCH (20:33)
[2021-05-17] MEDS: Piperacillin/Tazobactam 3.375 GM in Sodium Chloride 0.9% 100 ML IVPB SCH ×3 (00:04→17:19)
[2021-05-17 03:44] LABS: Vancomycin, Trough 16.3 ug/mL
[2021-05-17 03:45] LABS: Anion Gap 15 mmol/L (10-20); BUN (Urea Nitrogen) 12 mg/dL (8.4-25.7); Calc. Creatinine Clearance 191 mL/min (70-130); Calcium 8.5 mg/dL (7.8-10.44); Carbon Dioxide 21 mmol/L (22-29); Chloride 102 mmol/L (98-107); Glucose 144 mg/dL (70-105); Potassium 3.5 mmol/L (3.5-5.1); Sodium 134 mmol/L (136-145)
[2021-05-17] MEDS: VANCOMYCIN 1.75 GM/350 ML BAG 1.75 GM in Premix Bag 1 BAG IVPB SCH ×2 (03:55→16:22)
[2021-05-17 05:25] LABS: Hemoglobin 11.4 g/dL (14.0-18.0); MDiff Complete? YES; Mean Corpuscular HGB CONC 34.3 g/dL (32.0-36.0); Mean Corpuscular Hemoglobin 31.7 pg (27.0-31.0); Mean Corpuscular Volume 92.3 fL (78.0-98.0); Mean Platelet Volume 8.5 fL (7.4-10.4); Platelet Count 324 thou/uL (130-400); Red Blood Cell (RBC) Count 3.61 mill/uL (4.70-6.10); White Blood Cell (WBC) Count 8.7 thou/uL (4.8-10.8)
[2021-05-17 05:26] LABS: Band 7 % (5-11); Eosinophils 3 % (0-10); Lymphocytes 11 % (21-51); Metamyelocyte 2 % (0-0); Monocytes 2 % (0-10); Myelocyte 4 % (0-0); Neutrophil 66 % (42-75); Platelet Morphology Comment Appears Adequate; RBC Morphology Normal; Reactive Lymphocytes 5 % (0-10)
[2021-05-17] MEDS: Cholecalciferol 1,000 UNITS (25 MCG) TAB PO SCH (09:22)
[2021-05-17] MEDS: Loratadine 10 MG TAB PO SCH (09:22)
[2021-05-17] MEDS: Metoprolol Tartrate 25 MG TAB PO SCH ×2 (09:22→21:56)
[2021-05-17] MEDS: Ascorbic Acid 500 mg Chewable Tablet PO SCH (09:22)
[2021-05-17] MEDS: Micafungin 100 MG in Sodium Chloride 0.9% 100 ML IVPB SCH ×2 (12:00→13:33)
[2021-05-17] MEDS: Enoxaparin Sodium 40 MG/0.4 ML SYRINGE SC SCH (21:56)
[2021-05-18] MEDS: Piperacillin/Tazobactam 3.375 GM in Sodium Chloride 0.9% 100 ML IVPB SCH
[2021-05-18] MEDS: VANCOMYCIN 1.75 GM/350 ML BAG 1.75 GM in Premix Bag 1 BAG IVPB SCH (03:58)
[2021-05-18 06:44] LABS: Hemoglobin 11.5 g/dL (14.0-18.0); Mean Corpuscular Hemoglobin 31.6 pg (27.0-31.0); Mean Corpuscular Volume 93.2 fL (78.0-98.0); Mean Platelet Volume 8.1 fL (7.4-10.4); Platelet Count 356 thou/uL (130-400); RBC Distribution Width 13.2 % (11.5-14.5); Red Blood Cell (RBC) Count 3.65 mill/uL (4.70-6.10)
[2021-05-18 06:53] LABS: Anion Gap 13 mmol/L (10-20); BUN (Urea Nitrogen) 12 mg/dL (8.4-25.7); Calc. Creatinine Clearance 176 mL/min (70-130); Calcium 8.3 mg/dL (7.8-10.44); Carbon Dioxide 22 mmol/L (22-29); Chloride 104 mmol/L (98-107); Glucose 112 mg/dL (70-105); Potassium 3.3 mmol/L (3.5-5.1); Sodium 136 mmol/L (136-145)
[2021-05-18 06:55] LABS: Band 2 % (5-11); Eosinophils 2 % (0-10); Hypochromia SLIGHT = 6-15 cells (100X) (0-5/hpf); Lymphocytes 21 % (21-51); MDiff Complete? YES; Neutrophil 75 % (42-75); Platelet Morphology Comment Appears Adequate
[2021-05-18] MEDS: Amoxicillin/Potassium Clav 875 MG TAB PO SCH ×2 (08:53→20:26)
[2021-05-18] MEDS: Potassium Chloride 20 MEQ TAB PO SCH ×2 (08:53→13:22)
[2021-05-18] MEDS: Cholecalciferol 1,000 UNITS (25 MCG) TAB PO SCH (08:54)
[2021-05-18] MEDS: Ascorbic Acid 500 mg Chewable Tablet PO SCH (08:54)
[2021-05-18] MEDS: Metoprolol Tartrate 25 MG TAB PO SCH ×2 (08:55→20:26)
[2021-05-18] MEDS: Loratadine 10 MG TAB PO SCH (08:55)
[2021-05-18] MEDS: Enoxaparin Sodium 40 MG/0.4 ML SYRINGE SC SCH (20:26)
[2021-05-19 07:07] LABS: Hemoglobin 11.6 g/dL (14.0-18.0); Mean Corpuscular Hemoglobin 31.3 pg (27.0-31.0); Mean Corpuscular Volume 92.1 fL (78.0-98.0); Platelet Count 358 thou/uL (130-400); Red Blood Cell (RBC) Count 3.69 mill/uL (4.70-6.10); White Blood Cell (WBC) Count 8.2 thou/uL (4.8-10.8)
[2021-05-19 07:30] LABS: Anion Gap 12 mmol/L (10-20); Calc. Creatinine Clearance 212 mL/min (70-130); Calcium 8.6 mg/dL (7.8-10.44); Carbon Dioxide 24 mmol/L (22-29); Chloride 103 mmol/L (98-107); Glucose 115 mg/dL (70-105); Potassium 3.4 mmol/L (3.5-5.1); Sodium 136 mmol/L (136-145)
[2021-05-19 07:39] LABS: BUN (Urea Nitrogen) 8 mg/dL (8.4-25.7)
[2021-05-19 07:42] LABS: Band 5 % (5-11); Lymphocytes 14 % (21-51); MDiff Complete? YES; Metamyelocyte 2 % (0-0); Monocytes 5 % (0-10); Myelocyte 1 % (0-0); Neutrophil 72 % (42-75); Platelet Morphology Comment Appears Adequate; Polychromasia SLIGHT = 2-3 cells (100X) (0-2/hpf); Reactive Lymphocytes 1 % (0-10)
[2021-05-19] MEDS: Metoprolol Tartrate 25 MG TAB PO SCH (08:50)
[2021-05-19] MEDS: Amoxicillin/Potassium Clav 875 MG TAB PO SCH (08:51)
[2021-05-19] MEDS: Cholecalciferol 1,000 UNITS (25 MCG) TAB PO SCH (08:51)
[2021-05-19] MEDS: Ascorbic Acid 500 mg Chewable Tablet PO SCH (08:52)
[2021-05-19] MEDS: Loratadine 10 MG TAB PO SCH (08:52)
[2021-05-19] MEDS ORDERED: Potassium Chloride 20 MEQ TAB PO SCH (12:41)
[2021-05-19 13:50] VITALS: BP 123/82; TEMP 98.3
== END 2021-05-19 14:50 | DRG 870 ==
LOC: ERS 08:52 → CCU 11:03 → 2NO 05-09 15:02 → IMCU/EMU 05-11 20:20 → T4-B 05-15 14:10
PROVIDERS: ADMIT Internal Medicine; ATTEND Internal Medicine
PROC: XW033E5 Introduction of Remdesivir Anti-infective into Peripheral Vein, Percutaneous Approach, New Technology Group 5 (ICD-10-PCS; 2021-04-22)
PROC: 8E0ZXY6 Isolation (ICD-10-PCS; 2021-04-22)
PROC: 0BH17EZ Insertion of Endotracheal Airway into Trachea, Via Natural or Artificial Opening (ICD-10-PCS; principal; 2021-05-06)
PROC: 5A1955Z Respiratory Ventilation, Greater than 96 Consecutive Hours (ICD-10-PCS; 2021-05-06)
DX: A41.89 Other specified sepsis (principal); U07.1 COVID-19; J12.82 Pneumonia due to coronavirus disease 2019; J80 Acute respiratory distress syndrome; I21.A1 Myocardial infarction type 2; N17.9 Acute kidney failure, unspecified; E87.2 Acidosis; E87.0 Hyperosmolality and hypernatremia; E66.9 Obesity, unspecified; R73.9 Hyperglycemia, unspecified; D64.9 Anemia, unspecified; R65.20 Severe sepsis without septic shock; E83.41 Hypermagnesemia; R31.0 Gross hematuria; E87.6 Hypokalemia; E87.8 Other disorders of electrolyte and fluid balance, not elsewhere classified; Z68.32 Body mass index [BMI] 32.0-32.9, adult
CPT/HCPCS: 31500; 36415; 36416; 36556; 36600; 51702; 71045; 80048; 80053; 80076; 80202; 81001; 82553; 82728; 82805; 83605; 83735; 83880; 84100; 84145; 84443; 84484; 85007; 85025; 85027; 85379; 85610; 85730; 86140; 87040; 87070; 87071; 87086; 87205; 93005; 93306; 94002; 94003; 94640; 94660; 94760; 96365; 96368; 96374; 96375; J0456; J0692; J0696; J1100; J1644; J1650; J1815; J1885; J1940; J2060; J2185; J2248; J2543; J2704; J3010; J3370; J3475; J3480; J3490; J7030; J7050; J7120; J7620; S0028; U0003; U0005